=== PATIENT | male | born 1950 | race Caucasian/White ===

== ENCOUNTER → 2019-04-30 13:40 | Outpatient (BNVA) | payer MEDICARE, OTHER, SELFPAY | PROVIDERS: Family Provider Nurse Practitioner; PCP Nurse Practitioner; Visit Provider Nurse Practitioner | DX: E11.65 Type 2 diabetes mellitus with hyperglycemia (principal); Z79.4 Long term (current) use of insulin; I10 Essential (primary) hypertension; F41.9 Anxiety disorder, unspecified; E03.8 Other specified hypothyroidism; M51.36 Other intervertebral disc degeneration, lumbar region | CPT/HCPCS: 81003 ==

== ENCOUNTER 2019-05-15 11:14 | Outpatient (CLI) | payer MEDICARE, OTHER, SELFPAY ==
[2019-05-15 11:35] VITALS: BP 140/88; PULSE 81; RESP 16; TEMP 36.6; O2SAT 97
[2019-05-15] MEDS: denosumab 60 mg SDV (11:56)
[2019-05-15] MEDS: denosumab 60 mg SDV SUBCUT (11:57)
[2019-05-15 12:09] VITALS: BP 136/79; PULSE 64; RESP 16; TEMP 36.8; O2SAT 97
== END 2019-05-15 11:15 | disposition home or self-care (01) ==
LOC: RHEOACUTE 11:16
PROVIDERS: Family Provider Nurse Practitioner; PCP Nurse Practitioner; Visit Provider Nurse Practitioner
DX: M81.0 Age-related osteoporosis without current pathological fracture (principal)
CPT/HCPCS: 96372; J0897

== ENCOUNTER 2019-07-31 13:31 | Outpatient (CLI) | payer MEDICARE, OTHER, SELFPAY ==
[2019-07-31 14:44] LABS: Alanine Aminotransferase 15 U/L (0-41); Albumin Level 4.4 g/dL (3.5-5.2); Alkaline Phosphatase 76 IU/L (40-130); Anion Gap 16.6 (5-19); Aspartate Amino Transferase 18 U/L (0-40); Blood Urea Nitrogen 13 mg/dL (8-23); Calcium 9.4 mg/dL (8.5-10.5); Carbon Dioxide 24 mmol/L (22-29); Chloride 98 mmol/L (98-107); Globulin 2.9 g/dL (1.3-4.6); Glomerular Filtration Rate 95.6 mL/min (90-130); Glucose 202 mg/dL (65-115); Osmolality Calculated 280 mOsm/kg (285-295); Potassium 4.6 mmol/L (3.5-5.1); Sodium 134 mmol/L (136-145); Thyroid Stimulating Hormone 4.82 uIU/mL (0.27-4.20); Total Bilirubin 0.9 mg/dL (0.15-1.2); Total Protein 7.3 g/dL (6.6-8.7)
[2019-07-31 15:42] LABS: Creatinine Urine, Random 87 mg/dL (39-259)
[2019-07-31 16:04] LABS: Estmated Average Glucose 200; Hemoglobin A1C 8.6 % (4.0-6.0)
[2019-07-31 16:27] LABS: Microalbum Creatinine Ratio Ur 11 mg/dL (0-20); Microalbumin Random Urine 1 ug/dL (0-20)
== END 2019-07-31 13:32 | disposition home or self-care (01) ==
LOC: LAB 13:35
PROVIDERS: Family Provider Nurse Practitioner; PCP Nurse Practitioner; Visit Provider Nurse Practitioner
DX: E11.65 Type 2 diabetes mellitus with hyperglycemia (principal); Z79.4 Long term (current) use of insulin
CPT/HCPCS: 80053; 82044; 83036; 84443

== ENCOUNTER → 2019-12-25 10:38 | Outpatient (BNVA) | payer MEDICARE, SELFPAY | PROVIDERS: Family Provider Nurse Practitioner; PCP Nurse Practitioner; Visit Provider Internal Medicine | DX: E11.649 Type 2 diabetes mellitus with hypoglycemia without coma (principal); E11.65 Type 2 diabetes mellitus with hyperglycemia; E03.8 Other specified hypothyroidism; E78.2 Mixed hyperlipidemia | CPT/HCPCS: 99204 ==

== ENCOUNTER → 2020-01-23 10:57 | Outpatient (BNVA) | payer MEDICARE, SELFPAY | PROVIDERS: Family Provider Nurse Practitioner; PCP Nurse Practitioner; Visit Provider Internal Medicine | DX: E03.8 Other specified hypothyroidism (principal); E11.649 Type 2 diabetes mellitus with hypoglycemia without coma; E11.65 Type 2 diabetes mellitus with hyperglycemia; E66.9 Obesity, unspecified; E78.2 Mixed hyperlipidemia; I10 Essential (primary) hypertension | CPT/HCPCS: 99214 ==

== ENCOUNTER 2020-03-09 13:55 | Emergency (ER) | payer MEDICARE, SELFPAY ==
[2020-03-09 14:12] VITALS: BP 170/92; PULSE 81; RESP 14; TEMP 36.8; O2SAT 96; BMI 25.4
--- NOTE | 2020-03-09 14:15 | XRR_ITS ---
PROCEDURE INFORMATION: Exam: XR Left Wrist Exam date and time: 03/09/2020 2:36 PM Age: 69 years old Clinical indication: Injury or trauma; Other: Chain broke and hit wrist; Blunt trauma (contusions or hematomas); Left; Injury date: 03/09/20 TECHNIQUE: Imaging protocol: XR Left wrist. Views: 3 or more views. COMPARISON: CR Wrist 3 views, LEFT* [id number] 07/15/2017 10:53 AM FINDINGS: Bones/joints: Acute fracture of the distal ulnar diaphysis. Moderate degenerative changes of the intracarpal joints. Soft tissues: Normal. XR/XR wrist LT min 3V* [id number] IMPRESSION: Acute fracture of the distal ulnar diaphysis.
--- NOTE | 2020-03-09 14:46 | ED_ITS ---
HPI - Extremity Problem General: Chief complaint: Extremity Injury, Upper Stated complaint: L ARM INJURY Time Seen by Provider: 03/09/20 14:46 History of Present Illness: HPI Narrative: Patient is a 69-year-old male who comes to the ED with left wrist injury. Injury occurred just prior to arrival. Patient says he was helping his neighbor hooked up a trailer onto his vehicle and a chain broke and a piece of metal hit the ulnar side of left wrist. Patient says he heard and felt a snap. He says his pain is 10 out of 10. He put a old wrist brace on his left arm before coming to the ED. Associated symptoms: Deny chest pain, fever(s) or rash Review of Systems Const: Denies: fever(s), chills or fatigue Eyes: Denies: change in vision or eye discomfort ENMT: Denies: throat pain, odynophagia, nasal discharge or nasal congestion Card: Denies: chest pain, palpitations, edema, swelling of feet/ankles, dyspnea on exertion or orthopnea Resp: Denies: dyspnea, productive cough or non-productive cough GI: Denies: abdominal pain, nausea, vomiting, diarrhea, constipation or hematochezia : Denies: flank pain, difficulty urinating, dysuria or hematuria Musc: Reports: extremity pain (Left wrist) and extremity swelling (Left wrist); Denies: neck pain or back pain Skin/Breast: Denies: rash or new lesions Neuro: Denies: headache(s), numbness in extremities or weakness in extremities PFS ED PFSH: Medical History Adult onset hypothyroidism Benign essential hypertension with target blood pressure below 140/90 DDD (degenerative disc disease), lumbar GERD (gastroesophageal reflux disease) Surgical History History of back surgery 2016 History of cataract surgery Both eyes 2014 Family History Other Diabetes Social History Smoking and tobacco status: current some day smoker smokeless tobacco Smoking risk assessment/counseling performed?: No Alcohol intake: unknown Desire information about alcohol rehabilitation?: No Counseling given: No Desire information about substance/drug rehabilitation?: No Counseling given: No Adopted: No Household members: spouse Housing: Manufactured/Mobile home Marital status: Number of children: 2 Highest education level completed: 8th Grade service: No Current occupational status: retired Pets and animals: Yes History of recent travel: No Current gender identity: Male Physical Exam Const: COMMON NORMALS: no acute distress, patient oriented x3 and alert GENERAL APPEARANCE: cooperative and comfortable HENMT: COMMON NORMALS: normocephalic HEAD & SCALP: normocephalic MOUTH: Normal oral and palatal mucosa present THROAT: posterior oropharynx normal and uvula midline Neck/C-Spine: COMMON NORMALS: supple GENERAL: Yes normal visual inspection Resp: COMMON NORMALS: normal respiratory effort, No retractions, No use of accessory muscles and clear to auscultation bilaterally AUSCULTATION: clear to auscultation bilaterally Cardio: COMMON NORMALS: regular rate, regular rhythm, S1 normal heart sound present, S2 normal heart sound present, No gallops present (Cardio), No clicks present (Cardio), No murmurs present (Cardio) and Peripheral pulses 2+ throughout RATE: regular rate RHYTHM: regular rhythm HEART SOUNDS: S1 normal heart sound present and S2 normal heart sound present PERIPHERAL PULSES: Peripheral pulses 2+ throughout GI: COMMON NORMALS: Normal to inspection, nondistended, normoactive bowel sounds present, Soft to palpation, non-tender and no masses PALPATION: Yes Soft to palpation : COMMON NORMALS: Yes no CVA tenderness BLADDER/KIDNEY EXAM: Yes no CVA tenderness Back/Pelvis: COMMON NORMALS: no CVA tenderness Extremity: COMMON NORMALS: no pedal edema NARRATIVE EXTREMITY EXAM: Left wrist?swelling and tenderness on ulnar aspect of the wrist. Limited range of motion due to pain. Radial pulse 2+ and neurovascular intact. GENERAL: Yes normal exam except as noted Neuro: COMMON NORMALS: patient oriented x3 and moves all extremities SENSORIUM/ORIENTATION: Yes alert Skin: GENERAL SKIN EXAM: dry skin Course Vital Signs: Vital signs: Vital Signs Temperature 98.2 F 03/09/20 14:12 Pulse Rate 81 03/09/20 14:12 Respiratory Rate 14 03/09/20 14:12 Blood Pressure 170/92 03/09/20 14:12 Pulse Oximetry 96 03/09/20 14:12 MDM - Extremity (Nontraumatic) MDM Narrative: Medical decision making narrative: Patient is a 69-year-old male who comes to the ED with left wrist injury and pain. Left wrist x-ray shows acute fracture of distal ulnar diaphysis. Radial pulse 2+ and neurovascular intact. Patient was put in a sugar tong splint and told to limit activity with left arm. I placed an order with case management for patient be referred to Ortho. Patient was sent home with a written prescription for [place] for pain. I told patient case management will be contacting him in the next several days to set up an appointment with orthopedic doctor for reevaluation. Return to ED precautions given. Patient understood and agree with plan. Imaging Data^: Xray Ortho: Attestation: I personally reviewed and interpreted this imaging study as follows: Radiologist's impression: [employer] [address] XRay Report Signed Patient: Miguel Beauchamp Unit #: [id number] : 1950 Age/Sex: 69 / M ADM Date: 03/09/20 Loc: ER Room/Bed: Attending Dr: Ordering Provider/Ordering MD: David Land DO Date of Service: 03/09/20 Procedure(s): XR wrist LT min 3V* [id number] Accession Number(s): [id number] Report Number: [id number] PROCEDURE INFORMATION: Exam: XR Left Wrist Exam date and time: 03/09/2020 2:36 PM Age: 69 years old Clinical indication: Injury or trauma; Other: Chain broke and hit wrist; Blunt trauma (contusions or hematomas); Left; Injury date: 03/09/20 TECHNIQUE: Imaging protocol: XR Left wrist. Views: 3 or more views. COMPARISON: CR Wrist 3 views, LEFT* [id number] 07/15/2017 10:53 AM FINDINGS: Bones/joints: Acute fracture of the distal ulnar diaphysis. Moderate degenerative changes of the intracarpal joints. Soft tissues: Normal. XR/XR wrist LT min 3V* [id number] IMPRESSION: Acute fracture of the distal ulnar diaphysis. Dictated By: Maikol Swain MD Signed By: Maikol Swain MD Signed Date/Time: 03/09/201512 DD/ 11 Discharge Plan Discharge Patient Disposition: Home Clinical Impression: Left ulnar fracture Qualifiers: Encounter type: initial encounter Ulna location: distal physis (incl. Salter- Benavidez) Fracture alignment: nondisplaced Qualified Code(s): S59.002A - U nspecified physeal fracture of lower end of ulna, left arm, initial encounter for closed fracture Condition: Stable Prescriptions: No Action amlodipine [Norvasc] 5 mg tablet 5 mg PO DAILY Qty: 30 RF: 2 citalopram [Celexa] 20 mg tablet 20 mg PO DAILY Qty: 30 RF: 2 furosemide [Lasix] 20 mg tablet 20 mg PO QAM Qty: 30 RF: 2 gabapentin 300 mg capsule 300 mg PO TID Qty: 90 RF: 2 lisinopril 20 mg tablet 20 mg PO DAILY Qty: 30 RF: 2 pravastatin [Pravachol] 20 mg tablet 20 mg PO DAILY Qty: 30 RF: 2 Prolia 60 mg/mL syringe SUBCUT RF: 0 (DME) Diabetic shoes with inserts Qty: 1 RF: 0 omega 1-noz-loc-fish oil [Fish Oil] 1,000 mg (120 mg-180 mg) capsule 2 cap PO DAILY RF: 0 glucosamine-chondroitin [Osteo Bi-Flex] 250-200 mg tablet 1 tab PO ONCE RF: 0 potassium gluconate 595 mg (99 mg) tablet 595 mg PO DAILY RF: 0 magnesium 250 mg tablet 250 mg PO DAILY RF: 0 calcium carbonate [Calcium 600] 600 mg calcium (1,500 mg) tablet 600 mg PO DAILY RF: 0 cholecalciferol (vitamin D3) 50 mcg (2,000 unit) capsule 50 mcg PO DAILY RF: 0 cholecalciferol (vitamin D3) 1,250 mcg (50,000 unit) tablet 50,000 unit PO .COMPLEX RF: 0 Bydureon 2 mg/0.65 mL pen injector 2 mg SUBCUT Q7D Qty: 4 RF: 2 (DME) FreeStyle Oleg 14 Day Sensor Kit See Rx Instructions .ROUTE .MEDSUPPLY Qty: 2 RF: 3 (DME) FreeStyle Oleg 14 Day [place] Misc See Rx Instructions .ROUTE .MEDSUPPLY Qty: 1 RF: 0 levothyroxine 150 mcg tablet 150 mcg PO DAILY Qty: 30 RF: 2 Levemir FlexTouch U-100 Insuln 100 unit/mL (3 mL) insulin pen 65 unit SUBCUT BID Qty: 117 RF: 3 Discharge Orders: Discharge Order (Routine); Ordered 03/09/20 Ordered By: James Martinez Discharge Diet: Regular Discharge Activity: Limit activity as instructed Patient Instructions: Wrist Fracture in Adults (ED) Activity Restrictions/Additional Instructions: Follow-up with medical provider as directed. Case management will be contacting you in the next day or 2 to set up an appointment with orthopedic doctor. Keep splint on and dry and limit activity with left arm. Take medications as prescribed. Return to the ER or your medical provider if condition worsens. Please read and understand discharge instructions. If any questions, please ask. Coding Level of Care Code ED Gear Keeper for Beth Fwkathi Exam Comprehensive
[2020-03-09] MEDS: HYDROcodone-acetaminophen 7.5-325 mg Tablet 1 TAB PO (15:04)
--- NOTE | 2020-03-09 16:03 | DCPLANNER ---
manager of health was asked to schedule a follow up appointment for patient with ortho. manager of health called the ortho clinic, spoke with Esther, gave clinic patients information. manager of health was told that patients information will be printed and reviewed. Clinic will call patient with appointment information.
--- NOTE | 2020-03-18 09:45 | DCPLANNER ---
Patient had a follow up appointment scheduled for 03.16.20 with ortho - patient did attend appointment.
== END 2020-03-09 15:47 | disposition home or self-care (01) ==
PROVIDERS: Emergency Provider Physician Assistant
DX: S59.002A Unspecified physeal fracture of lower end of ulna, left arm, initial encounter for closed fracture (principal); W20.8XXA Other cause of strike by thrown, projected or falling object, initial encounter; Z79.4 Long term (current) use of insulin; I10 Essential (primary) hypertension; F17.220 Nicotine dependence, chewing tobacco, uncomplicated
CPT/HCPCS: 12345; 29125; 73110; 99281; 99283

== ENCOUNTER 2020-03-16 15:53 | Outpatient (CLI) | payer MEDICARE, SELFPAY | END 2020-03-16 15:54 | disposition home or self-care (01) | LOC: SPT 15:54 | PROVIDERS: Visit Provider Orthopaedic Surgery | DX: Z46.89 Encounter for fitting and adjustment of other specified devices (principal); S52.692D Other fracture of lower end of left ulna, subsequent encounter for closed fracture with routine healing; X58.XXXD Exposure to other specified factors, subsequent encounter | CPT/HCPCS: 97760; L3982 ==

== ENCOUNTER → 2020-03-24 14:15 | Outpatient (BNVA) | payer MEDICARE, SELFPAY | PROVIDERS: Visit Provider Orthopaedic Surgery | DX: S52.502P Unspecified fracture of the lower end of left radius, subsequent encounter for closed fracture with malunion (principal); S52.602 Unspecified fracture of lower end of left ulna | CPT/HCPCS: 73110 ==

== ENCOUNTER → 2020-04-14 14:12 | Outpatient (BNVA) | payer MEDICARE, SELFPAY | PROVIDERS: Visit Provider Orthopaedic Surgery | DX: S52.202A Unspecified fracture of shaft of left ulna, initial encounter for closed fracture (principal); S52.502P Unspecified fracture of the lower end of left radius, subsequent encounter for closed fracture with malunion | CPT/HCPCS: 73110 ==

== ENCOUNTER → 2020-04-30 09:15 | Outpatient (BNVA) | payer MEDICARE, SELFPAY | PROVIDERS: Visit Provider Internal Medicine | DX: E11.649 Type 2 diabetes mellitus with hypoglycemia without coma (principal); E11.65 Type 2 diabetes mellitus with hyperglycemia; E66.9 Obesity, unspecified; E78.2 Mixed hyperlipidemia | CPT/HCPCS: 99214 ==

== ENCOUNTER → 2020-05-13 13:00 | Outpatient (BNVA) | payer MEDICARE, SELFPAY | PROVIDERS: Visit Provider Orthopaedic Surgery | DX: S52.202A Unspecified fracture of shaft of left ulna, initial encounter for closed fracture (principal); S52.502P Unspecified fracture of the lower end of left radius, subsequent encounter for closed fracture with malunion | CPT/HCPCS: 73110 ==

== ENCOUNTER 2020-07-21 10:31 | Outpatient (CLI) | payer MEDICARE, SELFPAY ==
--- NOTE | 2020-07-21 10:45 | XR_ITS ---
WS: [id number] KNEE RIGHT TECHNIQUE: 3 views of the right knee CLINICAL INFORMATION: PAIN IN RIGHT KNEE COMPARISON: None. FINDINGS: Moderate tricompartmental arthritis worse in the medial compartment and patellofemoral articulation. Hypertrophic patella. Hypertrophic changes along the lateral joint line. Chondrocalcinosis. Soft tiss ue edema. Small suprapatellar effusion. XR/XR knee RT 3V* [id number] IMPRESSION: 1. Moderate tricompartmental arthritis worse in the medial joint compartment a nd patellofemoral articulation. 2. Hypertrophic patella. 3. Small suprapatellar effusion with soft tissue edema. 4. No acute fractures
== END 2020-07-21 10:32 | disposition home or self-care (01) ==
LOC: RADWPI 10:38
PROVIDERS: PCP Nurse Practitioner Family; Visit Provider Nurse Practitioner Family
DX: M25.561 Pain in right knee (principal); M25.461 Effusion, right knee; R60.0 Localized edema
CPT/HCPCS: 73562

== ENCOUNTER → 2020-11-19 09:29 | Outpatient (BNVA) | payer MEDICARE, SELFPAY | PROVIDERS: PCP Nurse Practitioner Family; Referring Provider Nurse Practitioner Family; Visit Provider Urology | DX: R97.20 Elevated prostate specific antigen [PSA] (principal); R36.1 Hematospermia; N52.9 Male erectile dysfunction, unspecified; F41.9 Anxiety disorder, unspecified | CPT/HCPCS: 81003; 84153 ==

== ENCOUNTER → 2021-03-30 13:23 | Outpatient (BNVA) | payer MEDICARE, SELFPAY | PROVIDERS: PCP Nurse Practitioner Family; Visit Provider Internal Medicine | DX: E11.65 Type 2 diabetes mellitus with hyperglycemia (principal); E11.649 Type 2 diabetes mellitus with hypoglycemia without coma; E78.2 Mixed hyperlipidemia; E66.9 Obesity, unspecified; T63.001A Toxic effect of unspecified snake venom, accidental (unintentional), initial encounter; X58.XXXA Exposure to other specified factors, initial encounter; Z79.4 Long term (current) use of insulin; Z68.30 Body mass index [BMI] 30.0-30.9, adult | CPT/HCPCS: 99214 ==

== ENCOUNTER → 2021-07-02 10:50 | Outpatient (BNVA) | payer MEDICARE, SELFPAY | PROVIDERS: PCP Nurse Practitioner Family; Visit Provider Nurse Practitioner | DX: I10 Essential (primary) hypertension (principal); E11.65 Type 2 diabetes mellitus with hyperglycemia; Z79.4 Long term (current) use of insulin; M79.18 Myalgia, other site | CPT/HCPCS: 80053; 80061; 83036 ==

== ENCOUNTER → 2021-10-07 14:03 | Outpatient (BNVA) | payer MEDICARE, SELFPAY | PROVIDERS: PCP Nurse Practitioner; Visit Provider Nurse Practitioner | DX: Z12.5 Encounter for screening for malignant neoplasm of prostate (principal); E11.65 Type 2 diabetes mellitus with hyperglycemia; Z79.4 Long term (current) use of insulin; I10 Essential (primary) hypertension; E03.8 Other specified hypothyroidism; M17.10 Unilateral primary osteoarthritis, unspecified knee; M79.18 Myalgia, other site | CPT/HCPCS: 80053; 83036; 84443; G0103 ==

== ENCOUNTER → 2021-11-30 10:47 | Outpatient (BNVA) | payer MEDICARE, SELFPAY | PROVIDERS: PCP Nurse Practitioner; Visit Provider Podiatrist Foot & Ankle Surgery | DX: E11.42 Type 2 diabetes mellitus with diabetic polyneuropathy (principal); M21.619 Bunion of unspecified foot; M20.42 Other hammer toe(s) (acquired), left foot; L84 Corns and callosities; L60.2 Onychogryphosis; Z79.4 Long term (current) use of insulin | CPT/HCPCS: 11056; 11721 ==

== ENCOUNTER → 2021-12-22 11:46 | Outpatient (BNVA) | payer MEDICARE, SELFPAY | PROVIDERS: PCP Nurse Practitioner; Visit Provider Podiatrist Foot & Ankle Surgery | DX: E11.42 Type 2 diabetes mellitus with diabetic polyneuropathy (principal); M21.619 Bunion of unspecified foot; L84 Corns and callosities; M20.41 Other hammer toe(s) (acquired), right foot; Z79.4 Long term (current) use of insulin; Z79.84 Long term (current) use of oral hypoglycemic drugs; M20.42 Other hammer toe(s) (acquired), left foot | CPT/HCPCS: 28010 ==

== ENCOUNTER → 2021-12-28 08:04 | Outpatient (BNVA) | payer MEDICARE, SELFPAY | PROVIDERS: PCP Nurse Practitioner; Visit Provider Nurse Practitioner | DX: E03.8 Other specified hypothyroidism (principal); E11.65 Type 2 diabetes mellitus with hyperglycemia; Z79.4 Long term (current) use of insulin; Z12.5 Encounter for screening for malignant neoplasm of prostate | CPT/HCPCS: 80053; 83036; 84443; G0103 ==

== ENCOUNTER → 2022-03-29 10:28 | Outpatient (BNVA) | payer MEDICARE, SELFPAY | PROVIDERS: PCP Nurse Practitioner; Visit Provider Nurse Practitioner | DX: E11.65 Type 2 diabetes mellitus with hyperglycemia (principal); Z79.4 Long term (current) use of insulin; I10 Essential (primary) hypertension; E03.8 Other specified hypothyroidism | CPT/HCPCS: 80053; 83036; 84443 ==

== ENCOUNTER → 2022-06-21 10:37 | Outpatient (BNVA) | payer MEDICARE, SELFPAY | PROVIDERS: PCP Nurse Practitioner; Visit Provider Nurse Practitioner | DX: E11.65 Type 2 diabetes mellitus with hyperglycemia (principal); I10 Essential (primary) hypertension; Z79.4 Long term (current) use of insulin | CPT/HCPCS: 80053; 83036; 84443 ==

== ENCOUNTER → 2022-06-23 13:32 | Outpatient (BNVA) | payer MEDICARE, SELFPAY | PROVIDERS: PCP Nurse Practitioner; Visit Provider Nurse Practitioner | DX: E11.65 Type 2 diabetes mellitus with hyperglycemia (principal); Z79.4 Long term (current) use of insulin | CPT/HCPCS: 81000; 82043 ==

== ENCOUNTER → 2022-07-28 08:38 | Outpatient (BNVA) | payer MEDICARE, SELFPAY | PROVIDERS: PCP Nurse Practitioner; Visit Provider Nurse Practitioner | DX: R11.2 Nausea with vomiting, unspecified (principal); W57.XXXA Bitten or stung by nonvenomous insect and other nonvenomous arthropods, initial encounter | CPT/HCPCS: 80053; 81000; 85025 ==

== ENCOUNTER → 2022-08-02 11:51 | Outpatient (BNVA) | payer MEDICARE, SELFPAY | PROVIDERS: PCP Nurse Practitioner; Visit Provider Nurse Practitioner | DX: R11.2 Nausea with vomiting, unspecified (principal); W57.XXXA Bitten or stung by nonvenomous insect and other nonvenomous arthropods, initial encounter | CPT/HCPCS: 85025; 86618; 86666; 86757 ==

== ENCOUNTER → 2022-09-29 10:33 | Outpatient (BNVA) | payer MEDICARE, SELFPAY | PROVIDERS: PCP Nurse Practitioner; Visit Provider Nurse Practitioner | DX: I10 Essential (primary) hypertension (principal); E11.65 Type 2 diabetes mellitus with hyperglycemia; Z79.4 Long term (current) use of insulin | CPT/HCPCS: 80053; 80061; 83036; 84443 ==

== ENCOUNTER → 2022-10-04 14:49 | Outpatient (BNVA) | payer MEDICARE, SELFPAY | PROVIDERS: PCP Nurse Practitioner; Visit Provider Nurse Practitioner | DX: E03.8 Other specified hypothyroidism (principal); E11.65 Type 2 diabetes mellitus with hyperglycemia; Z79.4 Long term (current) use of insulin; I10 Essential (primary) hypertension; H65.90 Unspecified nonsuppurative otitis media, unspecified ear; M17.10 Unilateral primary osteoarthritis, unspecified knee | CPT/HCPCS: 81000 ==

== ENCOUNTER → 2022-12-27 10:54 | Outpatient (BNVA) | payer MEDICARE, SELFPAY | PROVIDERS: PCP Nurse Practitioner; Visit Provider Nurse Practitioner | DX: E11.65 Type 2 diabetes mellitus with hyperglycemia (principal); Z79.4 Long term (current) use of insulin; I10 Essential (primary) hypertension | CPT/HCPCS: 80053; 80061; 83036; 84443 ==

== ENCOUNTER → 2022-12-29 13:35 | Outpatient (BNVA) | payer MEDICARE, SELFPAY | PROVIDERS: PCP Nurse Practitioner; Visit Provider Nurse Practitioner | DX: E11.65 Type 2 diabetes mellitus with hyperglycemia (principal); Z79.4 Long term (current) use of insulin | CPT/HCPCS: 81000 ==

== ENCOUNTER → 2023-01-24 14:06 | Outpatient (BNVA) | payer MEDICARE, SELFPAY | PROVIDERS: PCP Nurse Practitioner; Visit Provider Podiatrist Foot & Ankle Surgery | DX: E11.42 Type 2 diabetes mellitus with diabetic polyneuropathy (principal); M21.619 Bunion of unspecified foot; M20.42 Other hammer toe(s) (acquired), left foot; M20.41 Other hammer toe(s) (acquired), right foot; L60.3 Nail dystrophy; L97.512 Non-pressure chronic ulcer of other part of right foot with fat layer exposed; E11.621 Type 2 diabetes mellitus with foot ulcer; Z79.4 Long term (current) use of insulin | CPT/HCPCS: 11042; 11721 ==

== ENCOUNTER → 2023-02-08 15:19 | Outpatient (BNVA) | payer MEDICARE, SELFPAY | PROVIDERS: PCP Nurse Practitioner; Visit Provider Podiatrist Foot & Ankle Surgery | DX: L97.514 Non-pressure chronic ulcer of other part of right foot with necrosis of bone (principal); L97.512 Non-pressure chronic ulcer of other part of right foot with fat layer exposed; E11.621 Type 2 diabetes mellitus with foot ulcer; E11.42 Type 2 diabetes mellitus with diabetic polyneuropathy; M20.41 Other hammer toe(s) (acquired), right foot; Z79.4 Long term (current) use of insulin | CPT/HCPCS: 11044; 73630; 87070; 87075; 87077; 87186; 87205 ==

== ENCOUNTER → 2023-02-15 08:30 | Outpatient (BNVA) | payer MEDICARE, SELFPAY | PROVIDERS: PCP Nurse Practitioner; Visit Provider Podiatrist Foot & Ankle Surgery | DX: E11.42 Type 2 diabetes mellitus with diabetic polyneuropathy (principal); M20.41 Other hammer toe(s) (acquired), right foot; L97.512 Non-pressure chronic ulcer of other part of right foot with fat layer exposed; L97.514 Non-pressure chronic ulcer of other part of right foot with necrosis of bone; E11.621 Type 2 diabetes mellitus with foot ulcer; Z79.4 Long term (current) use of insulin | CPT/HCPCS: 99213 ==

== ENCOUNTER → 2023-02-22 11:37 | Outpatient (BNVA) | payer MEDICARE, SELFPAY | PROVIDERS: PCP Nurse Practitioner; Visit Provider Podiatrist Foot & Ankle Surgery | DX: M20.41 Other hammer toe(s) (acquired), right foot (principal); L97.514 Non-pressure chronic ulcer of other part of right foot with necrosis of bone | CPT/HCPCS: 99213 ==

== ENCOUNTER → 2023-03-02 15:04 | Outpatient (BNVA) | payer MEDICARE, SELFPAY | PROVIDERS: PCP Nurse Practitioner; Visit Provider Podiatrist Foot & Ankle Surgery | DX: M20.41 Other hammer toe(s) (acquired), right foot (principal); L97.514 Non-pressure chronic ulcer of other part of right foot with necrosis of bone; E11.40 Type 2 diabetes mellitus with diabetic neuropathy, unspecified; E11.65 Type 2 diabetes mellitus with hyperglycemia; Z79.4 Long term (current) use of insulin; E11.621 Type 2 diabetes mellitus with foot ulcer | CPT/HCPCS: 99213 ==

== ENCOUNTER → 2023-03-28 10:19 | Outpatient (BNVA) | payer MEDICARE, SELFPAY | PROVIDERS: PCP Nurse Practitioner; Visit Provider Nurse Practitioner | DX: E11.65 Type 2 diabetes mellitus with hyperglycemia (principal); Z79.4 Long term (current) use of insulin; E03.8 Other specified hypothyroidism; Z12.5 Encounter for screening for malignant neoplasm of prostate | CPT/HCPCS: 80053; 83036; 84443; G0103 ==

== ENCOUNTER → 2023-03-30 13:19 | Outpatient (BNVA) | payer MEDICARE, SELFPAY | PROVIDERS: PCP Nurse Practitioner; Visit Provider Nurse Practitioner | DX: E11.65 Type 2 diabetes mellitus with hyperglycemia (principal); Z79.4 Long term (current) use of insulin | CPT/HCPCS: 81000 ==

== ENCOUNTER → 2023-06-05 10:45 | Outpatient (BNVA) | payer MEDICARE, SELFPAY | PROVIDERS: PCP Nurse Practitioner; Visit Provider Podiatrist Foot & Ankle Surgery | DX: L97.513 Non-pressure chronic ulcer of other part of right foot with necrosis of muscle (principal); E11.621 Type 2 diabetes mellitus with foot ulcer; L97.514 Non-pressure chronic ulcer of other part of right foot with necrosis of bone; M20.41 Other hammer toe(s) (acquired), right foot; E11.42 Type 2 diabetes mellitus with diabetic polyneuropathy; E11.65 Type 2 diabetes mellitus with hyperglycemia; Z79.4 Long term (current) use of insulin; Z46.89 Encounter for fitting and adjustment of other specified devices | CPT/HCPCS: 11043; 73630; 87070; 87075; 87077; 87186; 87205; 97760; L4361 ==

== ENCOUNTER 2023-06-05 11:42 | Outpatient (CLI) | payer MEDICARE, SELFPAY | END 2023-06-05 11:43 | disposition home or self-care (01) | LOC: SPT 11:43 | PROVIDERS: PCP Nurse Practitioner; Visit Provider Podiatrist Foot & Ankle Surgery | DX: Z46.89 Encounter for fitting and adjustment of other specified devices (principal); L97.513 Non-pressure chronic ulcer of other part of right foot with necrosis of muscle | CPT/HCPCS: 11043; 97760; L4361 ==

== ENCOUNTER → 2023-06-14 13:06 | Outpatient (BNVA) | payer MEDICARE, SELFPAY | PROVIDERS: PCP Nurse Practitioner; Visit Provider Thoracic Surgery (Cardiothoracic Vascular Surgery) | DX: E11.52 Type 2 diabetes mellitus with diabetic peripheral angiopathy with gangrene (principal); E11.621 Type 2 diabetes mellitus with foot ulcer; L97.511 Non-pressure chronic ulcer of other part of right foot limited to breakdown of skin | CPT/HCPCS: 97597; 99213 ==

== ENCOUNTER → 2023-06-21 13:35 | Outpatient (BNVA) | payer MEDICARE, SELFPAY | PROVIDERS: PCP Nurse Practitioner; Visit Provider Thoracic Surgery (Cardiothoracic Vascular Surgery) | DX: E11.52 Type 2 diabetes mellitus with diabetic peripheral angiopathy with gangrene (principal); E11.621 Type 2 diabetes mellitus with foot ulcer; L97.511 Non-pressure chronic ulcer of other part of right foot limited to breakdown of skin | CPT/HCPCS: 97597 ==

== ENCOUNTER → 2023-06-27 10:22 | Outpatient (BNVA) | payer MEDICARE, SELFPAY | PROVIDERS: PCP Nurse Practitioner; Visit Provider Nurse Practitioner | DX: I10 Essential (primary) hypertension (principal); E11.65 Type 2 diabetes mellitus with hyperglycemia; R97.20 Elevated prostate specific antigen [PSA]; Z79.4 Long term (current) use of insulin | CPT/HCPCS: 80053; 83036; 84153; 84443; 85025 ==

== ENCOUNTER → 2023-06-28 14:08 | Outpatient (BNVA) | payer MEDICARE, SELFPAY | PROVIDERS: PCP Nurse Practitioner; Visit Provider Thoracic Surgery (Cardiothoracic Vascular Surgery) | DX: E11.52 Type 2 diabetes mellitus with diabetic peripheral angiopathy with gangrene (principal); E11.621 Type 2 diabetes mellitus with foot ulcer; L97.511 Non-pressure chronic ulcer of other part of right foot limited to breakdown of skin | CPT/HCPCS: 97597 ==

== ENCOUNTER → 2023-06-29 13:31 | Outpatient (BNVA) | payer MEDICARE, SELFPAY | PROVIDERS: PCP Nurse Practitioner; Visit Provider Nurse Practitioner | DX: E11.65 Type 2 diabetes mellitus with hyperglycemia (principal); Z79.4 Long term (current) use of insulin | CPT/HCPCS: 81000 ==

== ENCOUNTER → 2023-07-05 14:16 | Outpatient (BNVA) | payer MEDICARE, SELFPAY | PROVIDERS: PCP Nurse Practitioner; Visit Provider Thoracic Surgery (Cardiothoracic Vascular Surgery) | DX: E11.52 Type 2 diabetes mellitus with diabetic peripheral angiopathy with gangrene (principal); E11.621 Type 2 diabetes mellitus with foot ulcer; L97.511 Non-pressure chronic ulcer of other part of right foot limited to breakdown of skin | CPT/HCPCS: 97597 ==

== ENCOUNTER 2023-08-09 07:49 | Emergency (ER) | payer MEDICARE, OTHER, SELFPAY ==
[2023-08-09 07:56] VITALS: BP 153/78; PULSE 72; TEMP 36.6; O2SAT 96
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
[2023-08-09] MEDS: ondansetron 2 mg/ML SDV 2 mL 4 MG IVP (08:45)
[2023-08-09 08:46] VITALS: RESP 18; O2SAT 97
[2023-08-09] MEDS: morphine 4 mg/mL SDV 1 mL IVP ×2 (08:46→10:54)
[2023-08-09] MEDS: orphenadrine 30 mg/mL Inj 2 mL 60 MG IM (08:48)
[2023-08-09 10:48] VITALS: BP 156/76; PULSE 82; O2SAT 91
[2023-08-09 10:54] VITALS: RESP 17; O2SAT 93
[2023-08-09 12:21] VITALS: BP 138/86; PULSE 81; O2SAT 94
== END 2023-08-09 12:23 | disposition home or self-care (01) ==
PROVIDERS: Emergency Provider Family Medicine; PCP Nurse Practitioner
DX: S39.012A Strain of muscle, fascia and tendon of lower back, initial encounter (principal); Z79.4 Long term (current) use of insulin; E11.9 Type 2 diabetes mellitus without complications; I69.951 Hemiplegia and hemiparesis following unspecified cerebrovascular disease affecting right dominant side; I10 Essential (primary) hypertension; X50.1XXA Overexertion from prolonged static or awkward postures, initial encounter; Y92.129 Unspecified place in nursing home as the place of occurrence of the external cause
CPT/HCPCS: 72131; 96372; 96374; 96375; 96376; 99285; J2270; J2360; J2405

== ENCOUNTER → 2023-09-29 08:25 | Outpatient (BNVA) | payer MEDICARE, OTHER, SELFPAY | PROVIDERS: PCP Nurse Practitioner; Visit Provider Nurse Practitioner | DX: E55.9 Vitamin D deficiency, unspecified (principal); E11.65 Type 2 diabetes mellitus with hyperglycemia; Z79.4 Long term (current) use of insulin; E03.8 Other specified hypothyroidism; I10 Essential (primary) hypertension | CPT/HCPCS: 80053; 80061; 82306; 83036; 84443; 85025 ==

== ENCOUNTER 2023-10-01 13:10 | Emergency (ER) | payer MEDICARE, OTHER, SELFPAY ==
[2023-10-01 13:12] VITALS: BP 159/89; PULSE 80; RESP 18; TEMP 36.7; O2SAT 97; BMI 26.6
--- NOTE | 2023-10-01 13:16 | XRR_ITS ---
PROCEDURE INFORMATION: Exam: XR Right Hip Exam date and time: 10/01/2023 1:36 PM Age: 72 years old Clinical indication: Injury or trauma; Fall; Blunt trauma (contusions or hematomas); Right; Hip; Prior surgery; Surgery date: 6+ months; Additional info: Fall right hip pain TECHNIQUE: Imaging protocol: Radiologic exam of the right hip. Views: 1 view hip with pelvis when performed. COMPARISON: CT pelvis wo con [id number] 07/15/2017 11:29 AM FINDINGS: Bones/joints: Metallic hardware transfix healing intertrochanteric fractures of the right hip. Bony alignment is normal. No acute fracture noted. Soft tissues: Unremarkable. XR/XR hip RT 2-3V wo/w pel* [id number] IMPRESSION: Stable healing fractures of the right femur
--- NOTE | 2023-10-01 13:25 | W.ED.EXTPRO ---
HPI - Extremity Problem General: Chief complaint: Extremity Injury, Lower Stated complaint: RIGHT HIP PAIN S/P FALL Time Seen by Provider: 10/01/23 13:12 History of Present Illness: Patient presents to the ER with complaints of falling after tripping over his dog and landing on his right hip and now having right hip pain. Patient denies any blood thinners. Or hitting his head. EMS gave him 4 mg Zofran and 50 mcg of fentanyl on route. Patient does appear to have shortening and rotation. Patient has a mateo in his femur where he broke it earlier this year. He was then in [place]. This pain is controlled at the present time. Patient has no other complaints. Review of Systems General: Reports: 10 or more systems reviewed and unremarkable except in HPI and below PFSH ED PFSH: Medical History Urinary hesitancy Dietary noncompliance Osteoarthritis, knee Diabetes mellitus with hyperglycemia, with long-term current use of insulin 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 Erectile dysfunction Hematospermia Elevated PSA GERD (gastroesophageal reflux disease) DDD (degenerative disc disease), lumbar Adult onset hypothyroidism Benign essential hypertension with target blood pressure below 140/90 Surgical History S/P ORIF (open reduction internal fixation) fracture July 05 Right femur mateo, plate, screws at [place] History of back surgery 2016 History of cataract surgery Both eyes 2014 Family History Other Diabetes Hypertension Social History Smoking and tobacco/nicotine status: never used tobacco/nicotine Alcohol intake: unknown Substance/Drug Use: never Adopted: No Caregiver/support person: No Lives independently: Yes Household members: spouse Housing: House Marital status: Number of children: 2 service: No Current occupational status: retired Pets and animals: Yes Pets & animals: farm animals Do you think of yourself as: Straight/Heterosexual Current gender identity: Male Physical Exam Const: COMMON NORMALS: no acute distress, average body habitus, patient oriented x3, no limitations, healthy appearing, alert and well nourished HENMT: COMMON NORMALS: normocephalic, atraumatic, hearing grossly normal bilaterally, external ears normal, Normal external nose present and moist oral mucous membranes HEAD & SCALP: normocephalic and atraumatic NOSE: Normal external nose present EXTERNAL EAR: Yes external ears normal Neck/C-Spine: COMMON NORMALS: no JVD Chest: COMMONS NORMALS: normal inspection of the chest and normal palpation of entire chest wall Resp: COMMON NORMALS: normal respiratory effort, No retractions, No use of accessory muscles and clear to auscultation bilaterally AUSCULTATION: clear to auscultation bilaterally Cardio: COMMON NORMALS: no JVD, regular rate, regular rhythm, S1 normal heart sound present, S2 normal heart sound present, No gallops present (Cardio), No clicks present (Cardio) and No murmurs present (Cardio) RATE: regular rate RHYTHM: regular rhythm HEART SOUNDS: S1 normal heart sound present and S2 normal heart sound present GI: COMMON NORMALS: Normal to inspection, nondistended, normoactive bowel sounds present, Soft to palpation, non-tender, No hepatosplenomegaly present and no masses PALPATION: Yes Soft to palpation and Yes No hepatosplenomegaly present Extremity: NARRATIVE EXTREMITY EXAM: Tenderness with palpation over right hip region. Increased pain with movement. Neuro: COMMON NORMALS: patient oriented x3 SENSORIUM/ORIENTATION: Yes alert Course Vital Signs: Vital signs: Vital Signs Temperature 98.0 F 10/01/23 13:12 Pulse Rate 80 10/01/23 13:12 Respiratory Rate 18 10/01/23 13:12 Blood Pressure 159/89 10/01/23 13:12 Pulse Oximetry 97 10/01/23 13:12 Oxygen Delivery Me thod Room Air 10/01/23 13:12 MDM - Extremity (Nontraumatic) Medical Decision Making X-ray was obtained of patient's right hip and pelvis and right femur, no acute changes noted stable healing fractures noted in both. These results was discussed with the patient and his . Patient be discharged home. Differential Diagnosis Unlikely herpes zoster, gout, cellulitis, superficial thrombophlebitis, deep venous thrombosis of upper extremity, lower extremity edema or deep vein thrombosis of lower extremity Medical Records I reviewed the patient's medical records. Lab Data Radiology Impressions Hip/Pelvis X-Ray 10/01/23 13:16 IMPRESSION: Stable healing fractures of the right femur Femur X-Ray 10/01/23 13:43 IMPRESSION: Stable healing intertrochanteric fractures of the right hip All radiology interpretation(s) finalized by discharge Discharge Plan Discharge Patient Disposition: Home Clinical Impression: Fall, Contusion of hip Condition: Stable Prescriptions: No Action Prolia 60 mg/mL syringe SUBCUT potassium gluconate 595 mg (99 mg) tablet 595 mg PO DAILY magnesium 250 mg tablet 250 mg PO DAILY vitamin E (dl, acetate) 450 mg (1,000 unit) capsule 450 mg PO DAILY sildenafil 100 mg tablet 100 mg PO DAILY PRN (Reason: sexual activity) Qty: 20 12RF Rx Instructions: 1 hour before intercourse on empty stomach. NO NITROGLYCERIN! glucosamine-chondroitin [Osteo Bi-Flex] 250-200 mg tablet 1 tab PO ONCE Rx Instructions: give after food/meal insulin lispro [Humalog KwikPen Insulin] 100 unit/mL insulin pen See Rx Instructions SUBCUT TID Qty: 15 2RF Hold Instructions: Blood sugar improved Rx Instructions: 110-129=3U 130-150=6U 151-200=9U 201-250=12U 251-300=15U 301-350=18U 351-400=21U >400=24U SUBCUT three times daily; mupirocin 2 % ointment 1 applic topical BID Qty: 15 0RF ([facility]) Diabetic Tennis Shoes with 3 Pairs of Inserts See Rx Instructions .Route .MEDSUPPLY Qty: 1 0RF Rx Instructions: As directed by DRAKE[employer]O ([facility]) pen needle, diabetic [BD Ultra-Fine Micro Pen Needle] 32 gauge x 1/4 needle See Rx Instructions .ROUTE .MEDSUPPLY Qty: 360 3RF Rx Instructions: As directed (DME) Wheelchair See Rx Instructions .Route .MEDSUPPLY Qty: 1 0RF Rx Instructions: As directed ([facility]) FreeStyle Oleg 14 Day [place] Misc See Rx Instructions .ROUTE .MEDSUPPLY Qty: 1 0RF Rx Instructions: As directed ([facility]) FreeStyle Oleg 14 Day Sensor Kit See Rx Instructions .ROUTE .MEDSUPPLY Qty: 2 3RF Rx Instructions: As directed ([facility]) Custom molded accommodative diabetic shoes See Rx Instructions .Route .MEDSUPPLY Qty: 1 0RF Rx Instructions: As directed cholecalciferol (vitamin D3) 1,250 mcg (50,000 unit) tablet 50,000 unit PO .COMPLEX Qty: 4 5RF Rx Instructions: 50,000 units PO once every 7 days; clonidine HCl 0.3 mg tablet 0.3 mg PO Q8H Qty: 90 5RF duloxetine [Cymbalta] 20 mg capsule,delayed release(DR/EC) 20 mg PO BID Qty: 60 5RF Jardiance 25 mg tablet 25 mg PO QAM Qty: 30 5RF fluticasone propionate [Flonase Allergy Relief] 50 mcg/actuation spray,suspension 1 spray intranasal DAILY Qty: 16 5RF Rx Instructions: administer into each nostril insulin detemir U-100 100 unit/mL (3 mL) insulin pen 70 unit SUBCUT BID Qty: 117 5RF levothyroxine 200 mcg tablet 200 mcg PO DAILY Qty: 30 5RF pravastatin 20 mg tablet 20 mg PO DAILY Qty: 30 5RF Rx Instructions: at bedtime Rybelsus 14 mg tablet 14 mg PO DAILY Qty: 30 5RF tramadol 50 mg tablet 50 mg PO Q8H Qty: 90 2RF valsartan [Diovan] 320 mg tablet 320 mg PO DAILY Qty: 30 5RF tamsulosin [Flomax] 0.4 mg capsule 0.4 mg PO DAILY Qty: 30 5RF (DME) JACOB lange See Rx Instructions .Route .MEDSUPPLY Qty: 1 0RF Rx Instructions: As directed tizanidine 4 mg tablet 2 mg PO Q6H PRN (Reason: muscle spasticity) Qty: 20 0RF Rx Instructions: do not exceed 3 doses per 24 hrs hydrocodone-acetaminophen 5-325 mg tablet 1 tab PO Q6H PRN (Reason: pain) Qty: 10 0RF prednisone 20 mg tablet 20 mg PO TID Qty: 15 0RF Rx Instructions: 1 p.o. 3 times daily x3 days, 1 p.o. twice daily x2 days, 1 p.o. daily x2 days Discharge Orders: Discharge ED (Routine); Ordered 10/01/23 Ordered By: Vinicio Huntley Referrals: Corey Martin FNP-C [Primary Care Provider] - 1 week Patient Instructions: Hip Contusion (ED) Activity Restrictions/Additional Instructions: Your x-rays obtained of your right hip pelvis and femur did not show any new fractures. Coding Level of Care Code ED Gear Setter for Beth Roland
--- NOTE | 2023-10-01 13:43 | XRR_ITS ---
PROCEDURE INFORMATION: Exam: XR Right Femur Exam date and time: 10/01/2023 1:44 PM Age: 72 years old Clinical indication: Injury or trauma; Fall; Blunt trauma; Right; Prior surgery; Surgery date: 6+ months; Surgery type: RT hip; Additional info: Fall pain TECHNIQUE: Imaging protocol: Radiologic exam of the right femur. Views: 2 views. COMPARISON: NM bone scan whole body* [id number] 01/28/2019 7:49 AM FINDINGS: Bones/joints: Metallic hardware transfix healing comminuted fractures of the intertrochanteric portion of the right femur. Bony alignment is normal. No acute abnormality noted. Soft tissues: Unremarkable. XR/XR femur RT min 2V* [id number] IMPRESSION: Stable healing intertrochanteric fractures of the right hip
== END 2023-10-01 15:10 | disposition home or self-care (01) ==
PROVIDERS: Emergency Provider Emergency Medicine; PCP Nurse Practitioner
DX: S70.01XA Contusion of right hip, initial encounter (principal); Z79.4 Long term (current) use of insulin; E11.9 Type 2 diabetes mellitus without complications; I69.951 Hemiplegia and hemiparesis following unspecified cerebrovascular disease affecting right dominant side; I10 Essential (primary) hypertension; W01.0XXA Fall on same level from slipping, tripping and stumbling without subsequent striking against object, initial encounter
CPT/HCPCS: 73502; 73552; 99283

== ENCOUNTER → 2024-01-08 08:55 | Outpatient (BNVA) | payer MEDICARE, OTHER, SELFPAY | PROVIDERS: PCP Nurse Practitioner; Visit Provider Nurse Practitioner | DX: E11.9 Type 2 diabetes mellitus without complications (principal) | CPT/HCPCS: 80053; 80061; 83036; 84443; 85025 ==

== ENCOUNTER 2024-03-27 09:29 | Outpatient (CLI) | payer MEDICARE, OTHER, SELFPAY ==
[2024-03-27 10:33] LABS: Bilirubin Urine Negative (Negative); Blood Urine Negative (Negative); Glucose Urine UA 3+ (Normal); Ketones Urine Negative (Negative); Leukocyte Esterase Urine Negative (Negative); Nitrate Urine Negative (Negative); Protein Urine Negative (Negative); Specific Gravity, Urine 1.026 (1.005-1.030); Urine Appearance Clear (CLEAR); Urine Color Yellow (Yellow); Urobilinogen Urine 0.2 mg/dL (Negative)
[2024-03-27 10:38] LABS: Add Urine Microscopic? YES; Bacteria Urine None Seen /hpf; RBC Urine 0-2 /hpf (0-2); Squamous Epithelial Cell Urine 0-5 /hpf (0-5); WBC Urine 0-5 /hpf (0-5)
[2024-03-27 10:44] LABS: Estmated Average Glucose 192; Hemoglobin A1C 8.3 % (4.0-6.0)
[2024-03-27 10:52] LABS: Alanine Aminotransferase 20 U/L (0-41); Albumin Level 4.1 g/dL (3.5-5.2); Alkaline Phosphatase 147 U/L (40-130); Anion Gap 17.2 (5-19); Aspartate Amino Transferase 21 U/L (0-40); Blood Urea Nitrogen 21 mg/dL (8-23); Calcium 9.3 mg/dL (8.5-10.5); Carbon Dioxide 20 mmol/L (22-29); Chloride 101 mmol/L (98-107); Globulin 3.2 g/dL (1.3-4.6); Glucose 197 mg/dL (65-115); Osmolality Calculated 286 mOsm/kg (285-295); Potassium 4.2 mmol/L (3.5-5.1); Sodium 134 mmol/L (136-145); Total Bilirubin 0.7 mg/dL (0.15-1.2); Total Protein 7.3 g/dL (6.6-8.7)
== END 2024-03-27 09:30 | disposition home or self-care (01) ==
LOC: LAB 09:30
PROVIDERS: PCP Nurse Practitioner; Visit Provider Nurse Practitioner
DX: E11.9 Type 2 diabetes mellitus without complications (principal); E11.65 Type 2 diabetes mellitus with hyperglycemia; Z79.4 Long term (current) use of insulin
CPT/HCPCS: 36415; 80053; 81001; 83036

== ENCOUNTER 2024-04-03 16:22 | Outpatient (CLI) | payer MEDICARE, OTHER, SELFPAY ==
--- NOTE | 2024-04-03 16:29 | CT_ITS ---
WS: [id number] CT chest w con* [id number] HISTORY: NEOPLASM OF UNCERTAIN BEHAVIOR OF SITES OF THE ORAL CAVITY TECHNIQUE: Axial imaging performed through the thorax. Coronal and sagittal reformats are submitted. [facility] use at least one of these dose optimization techniques: automated exposure control; mA and/or kV adjustment per patient size (includes targeted exams where dose is mat ched to clinical indication); or iterative reconstruction. CONTRAST: Omnipaque 350; 100 mL IV. DLP: 518.67 mGy.cm COMPARISON: None available. Lungs and central airway: Poor inspiratory effort. Lung volumes are decreased resulting in crowding. No pulmonary mass or nodule. No pneumonia. Benign granuloma RIGHT lower lobe. Pleura: Normal. No pleural effusion. Heart and pericardium: Heart is slightly enlarged. No pericardial effusion. Mediastinum and deloris: Several indeterminate subcarinal lymph nodes. The largest lymph node is 2.1 cm. No hilar adenopathy. Small AP window lymph nodes. No axillary adenopathy. No supraclavicular lymph n ode. Vessels: Mild atherosclerosis aorta. No aneurysm. Normal size pulmonary artery. Chest wall and lower neck: No soft tissue masses. Upper abdomen: Cholelithiasis without acute cholecystitis. The entire gallbladder is not included. No adrenal mass. The visualized liver is negative. Pancreas is atrophied. Pancreatic head is not includ ed completely. Splenic granulomata. Osseous structures: Advanced thoracic spondylosis. No destructive bone lesions. Prior rotator cuff re pair RIGHT shoulder. CT/CT chest w con* [id number] IMPRESSION: 1. No pulmonary mass, nodule or pneumonia. 2. Indeterminate subcarinal lymph nodes. The largest lymph node measures 2.1 c m. Smaller AP window lymph nodes. Recommend follow-up chest CT in 3 months vers us PET/CT imaging. 3. Cholelithiasis without acute cholecystitis. 4. Mild atherosclerosis thoracic aorta.
[2024-04-03] MEDS: iohexol 350 mg/mL 500 mL Btl (per mL) IV (17:17)
== END 2024-04-03 16:23 | disposition home or self-care (01) ==
LOC: RAD 16:23
PROVIDERS: PCP Nurse Practitioner; Visit Provider Specialist
DX: D37.09 Neoplasm of uncertain behavior of other specified sites of the oral cavity (principal); J84.10 Pulmonary fibrosis, unspecified; K80.20 Calculus of gallbladder without cholecystitis without obstruction
CPT/HCPCS: 71260

== ENCOUNTER 2024-04-26 09:28 | Outpatient (CLI) | payer MEDICARE, OTHER, SELFPAY ==
--- NOTE | 2024-04-26 09:31 | PETR_ITS ---
PROCEDURE INFORMATION: Exam: PET/CT Skull Base to Mid-thigh Exam date and time: 04/26/2024 10:43 AM Age: 73 years old Clinical indication: Condition or disease; Primary cancer: Malignant neoplasm of overlapping sites of tonsils; Initial oncological staging LABS AND CLINICAL REPORTS: Glucose: 106 mg/dl Treatment strategy for malignancy (PET staging): Initial Staging (PI) TECHNIQUE: Imaging protocol: Following at least four-hour fasting and following the injection of radiopharmaceutical, low dose CT images were obtained. Then, PET images were obtained. Attenuation corrected images were constructed using the CT scan. Fused images of PET and CT were reviewed. The standardized uptake values (SUV) reported below are maximum values within a region of interest, expressed in gm/ml. Exam includes orbital meatal line to mid-thigh. SUV normalization method: BodyWeight Radiopharmaceutical: 11.74 mCi F-18 FDG (Fluorodeoxyglucose), IV. Time of imaging post radiopharmaceutical administration: 56 minutes Injection site: right hand COMPARISON: 1. CT chest w con* [id number] 04/03/2024 4:[address] lumbar spine wo con* [id number] 08/09/2023 9:20 AM 3. NM bone scan whole body* [id number] 01/28/2019 7:49 AM FINDINGS: Brain: Visualized brain has normal physiologic uptake. Pharynx: FDG avid left pharyngeal mass measures approximately 2.9 x 2.8 cm on axial image 636 and shows SUV max 19.5. Larynx: No abnormal uptake. Lungs, pleura and trachea: No abnormal uptake. Trace right pleural effusion. Heart: Normal physiologic uptake. Coronary arteries: Mild coronary artery calcification. Mediastinal space: No abnormal uptake. Liver: No abnormal uptake. Gallbladder and biliary ducts: No abnormal uptake. Cholelithiasis. Pancreas: No abnormal uptake. Diffuse atrophy without ductal dilatation. Spleen: No abnormal uptake. Calcified granulomata. Adrenal glands: No abnormal uptake. Kidneys and ureters: Normal physiologic uptake. Fluid density photopenic left renal cyst. Stomach and bowel: No abnormal uptake. Reproductive: Mild prostatomegaly. No abnormal uptake. Vasculature: No abnormal uptake. Mild systemic atherosclerotic calcification without aortic aneurysm. Lymph nodes: Enlarged left level 2 node measures approximately 1.9 x 1.7 cm on axial image 626 and shows SUV max 12.6. Focal FDG uptake at left lower abdominopelvic mesentery showing SUV max 10.7 on axial image 231 adjacent to nonenlarged left external iliac node. Calcified mediastinal and bilateral hilar nodes in keeping with sequela of old granulomatous disease. Skeleton: Healing subacute fracture deformities of the anterolateral right 3rd through 5th ribs with associated FDG uptake. Additional non FDG avid nonacute bilateral rib fracture deformities. Degenerative changes along the spine. Augmented L1 vertebral body. L5-S1 posterior instrumented fusion. Nonacute proximal right femur fracture deformity with partially visualized intramedullary nail and screw fixation with associated surrounding FDG uptake and thickening in the region of the iliopsoas bursa with central photopenia and peripheral uptake. Right humeral head suture anchors. Periarticular uptake at the [id number]-right glenohumeral and left hip joints likely inflammatory. Soft tissues: Some extravasated radiotracer at the dorsal right hand and distal forearm. Left palmar muscle FDG uptake without underlying CT abnormality is likely physiologic activation or strain. METRICS: Mediastinal blood pool: SUV mean 2.0 Liver uptake: SUV mean 2.3 PET/PET skull to thigh INIT [id number] assessment IMPRESSION: 1. Approximately 2.9 cm FDG avid left pharyngeal mass compatible with reported tonsillar malignancy. 2. Enlarged FDG avid metastatic left level 2 lymph node. 3. Subacute healing anterolateral right 3rd through 5th rib fractures. 4. Trace right pleural effusion. 5. Additional chronic and incidental findings as above, to include atherosclerosis, cholelithiasis, nonacute hardware fixed proximal right femur fracture deformity with suggested iliopsoas bursitis.
== END 2024-04-26 09:29 | disposition home or self-care (01) ==
LOC: RAD 09:28
PROVIDERS: PCP Nurse Practitioner; Visit Provider Specialist
DX: C09.8 Malignant neoplasm of overlapping sites of tonsil (principal); R59.0 Localized enlarged lymph nodes; K80.20 Calculus of gallbladder without cholecystitis without obstruction; K86.89 Other specified diseases of pancreas; D73.89 Other diseases of spleen; M43.26 Fusion of spine, lumbar region; Z87.311 Personal history of (healed) other pathological fracture
CPT/HCPCS: 78815; A9552

== ENCOUNTER 2024-05-20 13:15 | Oncology outpatient (recurring) (ONCR) | payer MEDICARE, OTHER, SELFPAY ==
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
--- NOTE | 2024-05-14 14:24 | ONCRAD TMN_ITS ---
Radiation Oncology Weekly Treatment Management Patient: Forester Cano MR#: [id number] : 1950> Attending Physician: Dr. Yumiko Antunez Date of Service: 05/14/2024 Fractions: 5 of 35 Referring Physician(s) : Diagnosis: C09.9 - Malignant neoplasm of tonsil, unspecified, Diagnosed 05/01/2024 (Active) C77.0 - Secondary and unspecified malignant neoplasm of lymph nodes of head, face and neck, Diagnosed 05/01/2024 (Active) Radiotherapy to date: Course: L tonsil, Treatment Site: Head [id number], Ref. ID: [id number], Energy: 6X, Dose/Fx (cGy): 200, #Fx: 5 / 35, Dose Correction (cGy): 0, Total Dose Delivered (cGy): 1,000, Start Date: 05/08/2024, Elapsed Days: 6 Reason for visit: The patient is being seen today as part of their regularly scheduled weekly on treatment visits to assess for acute toxicities from radiotherapy. Review of Systems: Patient has had no changes as yet Vital Signs: Performed on 05/14/2024 1:55 PM BMI - 25.794 kg/m2 (high), Height - 78 in, Weight - 223.2 lbs, Temperature - 97.1 f, Pulse - 61 /min, Respiration - 18 /min, O2 Sat - 96 %, Pain - 0, Fatigue - 0 and BP - 172/ 82 mm(hg)(high/). Physical Exam: No changes on exam Imaging: Radiation therapy imaging related to accurate target localization (i.e. KV, MV and CBCT) was reviewed. Appropriate changes, if any, were made to ensure treatment accuracy. Plan: Will continue with his treatments as planned. I did review with him the risks and side effects again. Signed by: Dr. Yumiko Antunez 05/14/2024 2:22:38 PM
== END 2024-05-20 23:59 | disposition home or self-care (01) ==
PROVIDERS: PCP Nurse Practitioner; Visit Provider Radiology Radiation Oncology
DX: Z51.0 Encounter for antineoplastic radiation therapy (principal); C09.9 Malignant neoplasm of tonsil, unspecified; C77.0 Secondary and unspecified malignant neoplasm of lymph nodes of head, face and neck
CPT/HCPCS: 77300; 77301; 77334; 77336; 77338; 77386; 99024; 99205

== ENCOUNTER 2024-05-24 11:30 | Oncology outpatient (recurring) (ONCR) | payer MEDICARE, OTHER, SELFPAY ==
--- NOTE | 2024-05-21 14:09 | ONCRAD TMN_ITS ---
Radiation Oncology Weekly Treatment Management Patient: Miguel Beauchamp#: [id number] : 1950 Attending Physician: Dr. 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 ID: [id number], Energy: 6X, Dose/Fx (cGy): 200, #Fx: , Dose Correction (cGy): 0, Total Dose Delivered (cGy): 1,990.5, Start Date: 05/08/2024, Elapsed Days: 13 Reason for visit: The patient is being seen today as part of their regularly scheduled weekly on treatment visits to assess for acute toxicities from radiotherapy. Review of Systems: Patient has noticed increased dry mouth. He is also having increased problems with urination which has been going on for several years. He is on Flomax once a day. Vital Signs: Performed on 05/21/2024 1:46 PM BMI - 26.441 kg/m2 (high), Height - 78 in, Weight - 228.8 lbs, Temperature - 97.4 f, Pulse - 55 /min (low), Respiration - 16 /min, O2 Sat - 97 %, Pain - 6, Fatigue - 0 and BP - 113/ 76 mm(hg). Physical Exam: No changes on exam. Skin is without changes Imaging: Radiation therapy imaging related to accurate target localization (i.e. KV, MV and CBCT) was reviewed. Appropriate changes, if any, were made to ensure treatment accuracy. Plan: I asked him at this point to double up on his Flomax. He will try that for a day or 2 to see if that improves it. He will eventually need a referral to urology and his is going to get a name for me to put into the referral process. I have also given him some samples of XyliMelts to try to see if this will help alleviate his dry mouth. Will otherwise continue with his treatments as planned Signed by: Dr. Yumiko Antunez 05/21/2024 2:07:56 PM
== END 2024-05-24 23:59 | disposition home or self-care (01) ==
PROVIDERS: PCP Nurse Practitioner; Visit Provider Radiology Radiation Oncology
DX: Z51.0 Encounter for antineoplastic radiation therapy (principal); C09.9 Malignant neoplasm of tonsil, unspecified; C77.0 Secondary and unspecified malignant neoplasm of lymph nodes of head, face and neck
CPT/HCPCS: 77336; 77386; 99024

== ENCOUNTER 2024-06-17 12:35 | Oncology outpatient (recurring) (ONCR) | payer MEDICARE, OTHER, SELFPAY ==
--- NOTE | 2024-05-27 14:24 | ONCRAD TMN_ITS ---
Radiation Oncology Weekly Treatment Management Patient: Forester Cano MR#: [id number] : 1950> Attending Physician: Dr. 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 ID: [id number], Energy: 6X, Dose/Fx (cGy): 200, #Fx: , Dose Correction (cGy): 0, Total Dose Delivered (cGy): 2,800, Start Date: 05/08/2024, End Date: 05/27/2024, Elapsed Days: 19 Reason for visit: The patient is being seen today as part of their regularly scheduled weekly on treatment visits to assess for acute toxicities from radiotherapy. Review of Systems: Patient has noticed marked increased difficulty with swallowing. He is tongue is sore and swollen. He has been able to get ice cream down over the weekend Vital Signs: Performed on 05/27/2024 1:34 PM BMI - 25.886 kg/m2 (high), Height - 78 in, Weight - 224 lbs, Temperature - 97.4 f, Pulse - 68 /min, Respiration - 17 /min, O2 Sat - 96 %, Pain - 8, Fatigue - 0 and BP - 172/ 83 mm(hg)(high/). Physical Exam: On exam his weight is down about 4 pounds from last week. His oral cavity reveals what appears to be thrush across his tongue and soft palate as well as some early mucositis. Imaging: Radiation therapy imaging related to accurate target localization (i.e. KV, MV and CBCT) was reviewed. Appropriate changes, if any, were made to ensure treatment accuracy. Plan: At this point of asked him to continue to take and what he can in terms of ice cream. We talked about using a straw to get his Ensure and. I have told him he needs 6 cans a day. I have also sent Diflucan to the pharmacy and will have him start that today. Hopefully this will kick in within the next 48 hours and some of this irritation will clear. Will otherwise continue with his treatments as planned Signed by: Dr. Yumiko Antunez 05/27/2024 2:22:24 PM
--- NOTE | 2024-06-04 08:18 | ONCRAD TMN_ITS ---
Radiation Oncology Weekly Treatment Management Patient: Miguel Beauchamp MR#: [id number] : 1950 Attending Physician: Dr. 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 ID: [id number], Energy: 6X, Dose/Fx (cGy): 200, #Fx: 35, Dose Correction (cGy): 0, Total Dose Delivered (cGy): 3,800, Start Date: 05/08/2024, Elapsed Days: 26 Reason for visit: The patient is being seen today as part of their regularly scheduled weekly on treatment visits to assess for acute toxicities from radiotherapy. Review of Systems: Patient continues to have irritation of his lips at the corner of his lips on the left side. The remainder of his skin is without changes. He does have a mild mucositis developing orally. The thrush is cleared. Vital Signs: Performed on 06/03/2024 2:01 PM BMI - 25.701 kg/m2 (high), Height - 78 in, Weight - 222.4 lbs, Temperature - 98 f, Pulse - 163 /min (high), Respiration - 18 /min, O2 Sat - 96 %, Pain - 5, Fatigue - 0 and BP - 102/ 67 mm(hg). Physical Exam: Moist desquamation of the lips at the corner of his mouth. Mild beginnings of mucositis orally. Imaging: Radiation therapy imaging related to accurate target localization (i.e. KV, MV and CBCT) was reviewed. Appropriate changes, if any, were made to ensure treatment accuracy. Plan: I have asked him to use a triple antibiotic ointment on his lips. Will otherwise try and get through the last third of his treatment. We did talk about how with his decreased p.o. intake he would be more susceptible to fatigue and even lightheadedness. I asked him to increase the amount that he is taking in. Signed by: Dr. Yumiko Antunez 06/04/2024 8:16:08 AM
[2024-06-10 13:00] VITALS: BP 168/84; PULSE 90; RESP 16; TEMP 36.6; O2SAT 98
[2024-06-10] MEDS: sodium chloride 0.9% 1,000 ML 999 ML IV (14:56)
--- NOTE | 2024-06-10 15:30 | ONCRAD TMN_ITS ---
Radiation Oncology Weekly Treatment Management Patient: Forester Cano MR#: [id number] : 1950> Attending Physician: Dr. 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 ID: [id number], Energy: 6X, Dose/Fx (cGy): 200, #Fx: 35, Dose Correction (cGy): 0, Total Dose Delivered (cGy): 4,400, Start Date: 05/08/2024, Elapsed Days: 33 Reason for visit: The patient is being seen today as part of their regularly scheduled weekly on treatment visits to assess for acute toxicities from radiotherapy. Review of Systems: Patient continues to have difficulty swallowing. His throat is gotten worse. His mouth is also gotten more sore. The lidocaine is no longer working. Vital Signs: Performed on 06/10/2024 1:56 PM BMI - 23.806 kg/m2 (high), Height - 78 in, Weight - 206 lbs, Temperature - 96.8 f, Pulse - 78 /min, Respiration - 18 /min, O2 Sat - 96 %, Pain - 10, Fatigue - 0 and BP - 161/ 86 mm(hg)(high/). Physical Exam: On exam externally has some erythema and dryness. Oral cavity reveals mucositis across the soft palate and the left cheek as well as his left lower lip. Imaging: Radiation therapy imaging related to accurate target localization (i.e. KV, MV and CBCT) was reviewed. Appropriate changes, if any, were made to ensure treatment accuracy. Plan: We talked today about doing IV fluids and after discussion with his infusion nurse will add a dose of Diflucan and a dose of IV pain medicine as well. At this point have given him the rest of the week off and we will see him back on Monday to hopefully restart his treatment. Signed by: Dr. Yumiko Antunez 06/10/2024 3:29:11 PM
[2024-06-10 15:32] VITALS: RESP 16
[2024-06-10] MEDS: morphine 4 mg/mL SDV 1 mL 2 MG IVP (15:32)
[2024-06-10] MEDS: fluconazole premix 100 MG in empty flexible container 1 EACH 50 MG IV (15:38)
--- NOTE | 2024-06-17 14:22 | ONCRAD TMN_ITS ---
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 ID: [id number], Energy: 6X, Dose/Fx (cGy): 200, #Fx: 22 / 35, Dose Correction (cGy): 0, Total Dose Delivered (cGy): 4,400, Start Date: 05/08/2024, Elapsed Days: 33 Reason for visit: The patient is being seen today as part of their regularly scheduled weekly on treatment visits to assess for acute toxicities from radiotherapy. Patient has severe mucositis and has been off treatment for 1 week. We will recommend another week off at this time. He also is working on his left sided skin reaction. Review of Systems: Vital Signs: Performed on 06/17/2024 1:48 PM BMI - 23.228 kg/m2 (high), Height - 78 in, Weight - 201 lbs, Temperature - 97.0 f, Pulse - 93 /min, Respiration - 16 /min, O2 Sat - 98 %, Pain - 15 (high), Fatigue - 0 and BP - 155/ 85 mm(hg)(high/). Physical Exam: Alert and oriented and answers questions appropriately. Oral cavity exam shows severe mucositis. Left neck shows scabbing formations but no moist desquamation. Imaging: Radiation therapy imaging related to accurate target localization (i.e. KV, MV and CBCT) was reviewed. Appropriate changes, if any, were made to ensure treatment accuracy. Plan: Diflucan 200 mg first day followed by 100 mg thereafter for total dose of 10 days. [place] 7.5 and liquid preparation of 200 cc preparation. RTC on 06/24/2024 to restart treatment. CeraVe or Aquaphor liberally to left and right neck. Signed by: Timothy Galloway 06/17/2024 2:21:33 PM
== END 2024-06-21 23:59 | disposition home or self-care (01) ==
PROVIDERS: PCP Nurse Practitioner; Visit Provider Radiology Radiation Oncology
DX: Z51.0 Encounter for antineoplastic radiation therapy (principal); C09.9 Malignant neoplasm of tonsil, unspecified; C77.0 Secondary and unspecified malignant neoplasm of lymph nodes of head, face and neck
CPT/HCPCS: 77336; 77386; 96365; 96367; 96375; 99024; J1450; J2270; J7030

== ENCOUNTER 2024-07-10 12:06 | Oncology outpatient (recurring) (ONCR) | payer MEDICARE, OTHER, SELFPAY ==
--- NOTE | 2024-06-24 14:43 | ONCRAD TMN_ITS ---
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 ID: [id number], Energy: 6X, Dose/Fx (cGy): 200, #Fx: 23 / 35, Dose Correction (cGy): 0, Total Dose Delivered (cGy): 4,600, Start Date: 05/08/2024, Elapsed Days: 47 Reason for visit: The patient is being seen today as part of their regularly scheduled weekly on treatment visits to assess for acute toxicities from radiotherapy. Review of Systems: Significant posterior oropharynx and uvula mucositis Vital Signs: Performed on 06/24/2024 1:51 PM BMI - 22.512 kg/m2, Height - 78 in, Weight - 194.8 lbs, Temperature - 96.8 f, Pulse - 94 /min, Respiration - 18 /min, O2 Sat - 90 % (low), Pain - 4, Fatigue - 4 and BP - 143/ 90 mm(hg)(high/). Physical Exam: Alert and oriented and answers questions appropriately. Oral cavity shows confluent mucositis significant Imaging: Radiation therapy imaging related to accurate target localization (i.e. KV, MV and CBCT) was reviewed. Appropriate changes, if any, were made to ensure treatment accuracy. Plan: Continue XRT Nystatin swish and swallow Signed by: Timothy Galloway 06/24/2024 2:41:44 PM
--- NOTE | 2024-06-28 10:57 | N.ONRD TS_ITS ---
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 ID: [id number], Energy: 6X, Dose/Fx (cGy): 200, #Fx: 26 / 35, Dose Correction (cGy): 0, Total Dose Delivered (cGy): 5,200, Start Date: 05/08/2024, End Date: 06/27/2024, Elapsed Days: 50 Clinical Summary: The patient tolerated RT well. Patient had significant posterior oral for mucositis which finally responded to nystatin swish and swallow. Plan: End of treatment today. Continue on the above medication until the skin reaction resolves. Continue liquid nystatin Follow up in one month. Signed by: Timothy Galloway>06/28/2024 10:56:13 AM <<Signature on File>>
--- NOTE | 2024-07-02 14:14 | ONCRAD TMN_ITS ---
Radiation Oncology Weekly Treatment Management Patient: Forester Cano MR#: [id number] : 1950> Attending Physician: Dr. 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 ID: [id number], Energy: 6X, Dose/Fx (cGy): 200, #Fx: 29 / 35, Dose Correction (cGy): 0, Total Dose Delivered (cGy): 5,800, Start Date: 05/08/2024, Elapsed Days: 55 Reason for visit: The patient is being seen today as part of their regularly scheduled weekly on treatment visits to assess for acute toxicities from radiotherapy. Review of Systems: Patient has gained 4 pounds. He is feeling stronger and has less soreness Vital Signs: Performed on 07/02/2024 1:41 PM BMI - 22.974 kg/m2 (high), Height - 78 in, Weight - 198.8 lbs, Temperature - 96.9 f, Pulse - 77 /min, Respiration - 16 /min, O2 Sat - 94 % (low), Pain - 3, Fatigue - 0 and BP - 97/ 65 mm(hg). Physical Exam: On exam he has mucositis across the palate. He has thrush on his tongue. His lip is healed up nicely. His skin is erythematous and dry Imaging: Radiation therapy imaging related to accurate target localization (i.e. KV, MV and CBCT) was reviewed. Appropriate changes, if any, were made to ensure treatment accuracy. Plan: Will continue with his treatments as planned Signed by: Dr. Yumiko Antunez 07/02/2024 2:13:02 PM
--- NOTE | 2024-07-09 13:45 | ONCRAD TMN_ITS ---
Radiation Oncology Weekly Treatment Management Patient: Forester Cano MR#: [id number] : 1950> Attending Physician: Dr. 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 ID: [id number], Energy: 6X, Dose/Fx (cGy): 200, #Fx: 34 / 35, Dose Correction (cGy): 0, Total Dose Delivered (cGy): 6,800, Start Date: 05/08/2024, Elapsed Days: 62 Reason for visit: The patient is being seen today as part of their regularly scheduled weekly on treatment visits to assess for acute toxicities from radiotherapy. Review of Systems: Patient is stable. He is actually gained a pound. His oral cavity reveals mucositis and thrush. Vital Signs: Performed on 07/09/2024 1:16 PM BMI - 23.043 kg/m2 (high), Height - 78 in, Weight - 199.4 lbs, Temperature - 97.2 f, Pulse - 86 /min, Respiration - 18 /min, O2 Sat - 96 %, Pain - 2, Fatigue - 5 and BP - 136/ 87 mm(hg). Physical Exam: Oral cavity reveals mucositis and thrush. His lip is healed up nicely. The external skin is erythematous and dry Imaging: Radiation therapy imaging related to accurate target localization (i.e. KV, MV and CBCT) was reviewed. Appropriate changes, if any, were made to ensure treatment accuracy. Plan: He will be finished with his treatments tomorrow. We talked about the usual recovery process. Of asked him to call if he should have any problems over the next week or 2 and we can always get him back for IV fluids. Signed by: Dr. Yumiko Antunez 07/09/2024 1:44:31 PM
--- NOTE | 2024-07-10 14:44 | N.ONRD TS_ITS ---
Radiation Oncology Treatment Summary Patient: >Miguel> MR#: [id number] : 1950> Age: 73> Sex: Male Dictated by: Dr. 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 ID: [id number], Energy: 6X, Dose/Fx (cGy): 200, #Fx: 35 / 35, Dose Correction (cGy): 0, Total Dose Delivered (cGy): 7,000, Start Date: 05/08/2024, End Date: 07/10/2024, Elapsed Days: 63 Clinical Summary: The patient tolerated RT well. Patient experienced mucositis and thrush. He also had dry desquamation of the skin. He really seemed to have more trouble with the first half of his treatment than he did the last 2 weeks. Plan: End of treatment today. Continue on the above medication until the skin reaction resolves. Follow up in one month. Signed by: Dr. Yumiko Antunez>07/10/2024 2:42:19 PM <<Signature on File>>
== END 2024-07-22 23:59 | disposition home or self-care (01) ==
PROVIDERS: PCP Nurse Practitioner; Visit Provider Radiology Radiation Oncology
DX: Z51.0 Encounter for antineoplastic radiation therapy (principal); C09.9 Malignant neoplasm of tonsil, unspecified; C77.0 Secondary and unspecified malignant neoplasm of lymph nodes of head, face and neck
CPT/HCPCS: 77336; 77386; 80053; 80061; 83036; 84443; 99024

== ENCOUNTER 2024-08-02 11:53 | Emergency (ER) | payer MEDICARE, OTHER, SELFPAY ==
[2024-08-02] VITALS (7 sets, daily range): BP systolic 117–184; BP diastolic 62–96; PULSE 89–109; RESP 15–18; TEMP 37.7; O2SAT 91–98; BMI 15.5
--- NOTE | 2024-08-02 12:00 | XR_ITS ---
WS: [id number] Exam: XR chest 1V portable [id number] Date/Time of Exam: 08/02/2024 12:06 PM Reason For Exam: Weakness Comparison 05/30/2017. Lungs are clear. Unremarkable cardiomediastinal silhouette for technique. No pleural effusion. Plaque atelectasis RIGHT base. Bony structures are intact. DJD of the LEFT shoulder. XR/XR chest 1V portable [id number] IMPRESSION: 1. No acute cardiopulmonary finding.
--- NOTE | 2024-08-02 12:00 | XR_ITS ---
WS: [id number] Exam: XR pelvis 1-2V* [id number] Date/Time of Exam: 08/02/2024 12:06 PM Reason For Exam: hip pain Comparison 10/01/2023. Old intertrochanteric fracture of the RIGHT hip is noted. There is internal fixation with a femoral neck screw and partially visualized intramedullary mateo. There is significant lucent reaction about the intramedullary mateo suggesting loosening. The femoral neck screw has eroded through the femoral head into the acetabulum since the last exam. There is operative fusion of the lumbar spine at L5-S1. Pedicle screws and posterior rods are noted. The S1 pedicle screw on the LEFT is fractured. Recommendations: Complete imaging of the femoral mateo and oblique views of the RIGHT hip should be considered for more detailed evaluation. CT might also be considered for further work-up. XR/XR pelvis 1-2V* [id number] IMPRESSION: 1. Old intertrochanteric fracture of the RIGHT hip with internal fixation. The femoral intramedullary mateo appears to have loosened. The femoral neck screw has eroded through the femoral head into the acetabulum.
--- NOTE | 2024-08-02 12:02 | ED_ITS ---
HPI - Extremity Problem 2 General: Chief complaint: Extremity Problem,Nontraumatic Stated complaint: ams - chronic hip pain Time Seen by Provider: 08/02/24 11:54 History of Present Illness: 73-year-old man with a history of chroni c hip issues and chronic pain syndrome on hydrocodone who presents the emergency room with worsening right sided hip pain. Is also had some fever recently. No other symptoms really other than pain. No cough. No altered mental status. No focal motor deficits. No nausea or vomiting. No shortness of breath. Related Data Home Medications ?Medication ?Instructions ?Recorded ?Confirmed fluticasone propionate 50 1 spray intranasal DAILY 03/1808/02/24 mcg/actuation nasal spray,suspension tizanidine 4 mg tablet 4 mg PO BID PRN Muscle Spast icity 08/02/24 08/02/24 tramadol 50 mg tablet 50 mg PO Q8H PRN Pain 08/02/24 Previous Rx's ?Medication ?Instructions ?Recorded Diabetic Tennis Shoes with 3 Pairs #1 ea 11/30/21 of Inserts flash glucose scanning reader #1 ea 12/30/21 (FreeStyle Oleg 14 Day [place]) flash glucose sensor (FreeStyle #2 ea 12/30/21 Oleg 14 Day Sensor kit) pen needle, diabetic 32 gauge x #360 ea 03/31/2204/27 (BD Ultra-Fine Micro Pen Needle) Custom molded accommodative #1 ea 01/24/23 diabetic shoes insulin glargine 100 unit/mL (3 See Rx Instructions KATE BCUT BID #30 04/09/24 mL) subcutaneous pen (Lantus mL Solostar U-100 Insulin) diabetic shoes and inserts #1 ea 05/02/24 hydrocodone 7.5 mg-acetaminophen 15 ml PO Q8H PRN pain 5 days #200 06/17/24 325 mg/15 mL oral solution mL levothyroxine 200 mcg tablet 200 mcg PO DAILY #30 tabs 06/24/24 lisinopril 10 mg tablet 10 mg PO DAILY #30 tabs 07/16 blood-glucose meter,continuous #1 ea 06/27/24 (Dexcom G7 Warp Knit Operator) blood-glucose sensor (Dexcom G7 #12 ea 06/27/24 Sensor device) insulin lispro 100 unit/mL See Rx Instructions SUBCUT TID #15 06/27/24 subcutaneous pen (Humalog KwikPen mL (U-100) Insulin) levothyroxine 25 mcg tablet 25 mcg PO QDAY #30 tabs polyethylene glycol 3350 17 17 g PO DAILY #510 grams 0 08/02/24 gram/dose oral powder (Miralax) doxycycline monohydrate 100 mg 100 mg PO BID 10 days # 20 caps 08/03/24 capsule oxycodone 5 mg tablet 5 mg PO Q8H PRN pain #20 tab s 08/03/24 Allergies Allergy/AdvReac Type Severity Reaction Status Date / Time metformin Allergy Unknown Unknown Verified 06/24/24 15:15 [facility] AdvReac Severe edema Verified 06/24/24 15:15 Review of Systems 2 Narrative: Constitutional symptoms: Negative except as documented in HPI. Skin symptoms: Negative except as documented in HPI. Eye symptoms: Negative except as documented in HPI. ENMT symptoms: Negative except as documented in HPI. Respiratory symptoms: Negative except as documented in HPI. Cardiovascular symptoms: Negative except as documented in HPI. Gastrointestinal symptoms: Negative except as documented in HPI. Genitourinary symptoms: Negative except as documented in HPI. Musculoskeletal symptoms: Negative except as documented in HPI. Neurologic symptoms: Negative except as documented in HPI. Psychiatric symptoms: Negative except as documented in HPI. Endocrine symptoms: Negative except as documented in HPI. 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 Erectile dysfunction Hematospermia Elevated PSA GERD (gastroesophageal reflux disease) DDD (degenerative disc disease), lumbar Adult onset hypothyroidism Benign essential hypertension with target blood pressure below 140/90 Surgical History S/P ORIF (open reduction internal fixation) fracture July 05 Right femur mateo, plate, screws at [place] History of back surgery 2016 History of cataract surgery Both eyes 2015 Family History Other Diabetes Hypertension Social History (Reviewed 06/24/24 @ 15:14 by JOHN Argueta Smoking and tobacco/nicotine status: never used tobacco/nicotine Alcohol intake: unknown Substance/Drug Use: never Adopted: No Caregiver/support person: No Lives independently: Yes Household members: spouse Housing: House Marital status: Number of children: 2 service: No Current occupational status: retired Pets and animals: Yes Pets & animals: farm animals Do you think of yourself as: Straight/Heterosexual Current gender identity: Male Physical Exam 2 Narrative: EXAM NARRATIVE: General: Alert, no acute distress. Skin: Warm, dry. Head: Normocephalic, atraumatic. Neck: Supple, trachea midline. Eye: Extraocular movements are intact. Ears, nose, mouth and throat: mucosa moist. Cardiovascular: Regular, Normal peripheral perfusion. Respiratory: Lungs are clear to auscultation, respirations are non-labored, breath sounds are equal, Symmetrical chest wall expansion. Gastrointestinal: Soft, Nontender, Non distended Musculoskeletal: Some shortening and rotation of the right leg. Apparently this is chronic. Neurological: Alert and oriented, No focal neurological deficit observed. Psychiatric: Cooperative, appropriate mood & affect. Course 2 Vital Signs: Vital signs: Vital Signs Temperature 100 F H 08/02/24 11:55 Pulse Rate 92 08/02/24 18:03 Respiratory Rate 16 08/02/24 18:03 Blood Pressure 137/86 08/02/24 18:03 Pulse Oximetry 97 08/02/24 18:03 Oxygen Delivery Me thod Room Air 08/02/24 16:00 Oxygen Flow Rate 2 08/02/24 13:19 MDM - Extremity (Nontraumatic) Medical Decision Making Lab Review: Laboratory results were reviewed and interpreted by myself the emergency room physician. I reviewed the patient's medical record. Reexamination: Patient has had some fevers. He has some mild leukocytosis. However no signs of infection. No urinary tract infection no cough. No signs of infection on x- ray. Also CT to his hip and pelvis to rule out any infection there and this is negative as well. Placing him on Omnicef and sending him home with some oxycodone for now. With instructions to follow-up with Ortho and to talk to his PCP or pain provider about further pain control. Consultation. I talked with Dr. Davila who is on-call for orthopedics. She reviewed films and recommends that the patient has an outpatient follow-up with orthopedics who had done his surgery as he has some loosening of his hardware. Assessment and plan: Chronic hip pain Hardware loosening Fever ?Cefepime in the emergency room. - Discharged home - Discussed plan with patient. Answered any questions. - Evaluation and treatment of this problem were appropriate in the emergency setting. Lab Data 08/02/24 12:17 08/02/24 12:17 Radiology Impressions Chest X-Ray 08/02/24 12:00 IMPRESSION: 1. No acute cardiopulmonary finding. Pelvis X-Ray 08/02/24 12:00 IMPRESSION: 1. Old intertrochanteric fracture of the RIGHT hip with internal fixation. The femoral intramedullary mateo appears to have loosened. The femoral neck screw has eroded through the femoral head into the acetabulum. Femur X-Ray 08/02/24 13:26 IMPRESSION: 1. Old intertrochanteric fracture of the RIGHT hip stabilized with internal fixation. There are changes along the proximal end of the intramedullary mateo suggesting loosening. The femoral neck screw has eroded through the femoral head into the acetabulum. There is erosion of the midportion of the acetabulum. 2. 2 transverse anchoring screws in the lower end of the femoral mateo of both fracture Lumbar Spine CT 08/02/24 14:19 IMPRESSION: 1. Advanced osseous demineralization. 2. Chronic grade 1 L5-S1 spondylolisthesis status post instrumented posterior spinal fusion with interbody disc spacer. 3. Chronic L1 compression fracture status post vertebroplasty. 4. No acute fracture. 5. Multilevel lumbar spondylosis. Pelvis CT 08/02/24 14:19 IMPRESSION: 1. Postoperative change from instrumented fixation of right femoral intratrochanteric fracture. The femoral neck screw extends through the femoral head into the femoroacetabular joint. 2. No significant bony bridging across the right intertrochanteric fracture suggesting at least partial nonunion. 3. No acute osseous abnormality. Laboratory Results WBC 16.70 10^3/uL (3.29-11.43) H 08/02/24 12:17 RBC 4.50 10^6/uL (3.85-5.65) 08/02/24 12:17 Hgb 13.60 g/dL (11.27-16.99) 08/02/24 12:17 Hct 40.6 % (37-53) 08/02/24 12:17 MCV 90.2 fl (82-101) 08/02/24 12:17 MCH 30.2 pg (27-33) 08/02/24 12:17 MCHC 33.5 g/dL (30-55) 08/02/24 12:17 RDW 13.1 % (12.1-15.1) 08/02/24 12:17 Plt Count 269 10^3/cmm (157-399) 08/02/24 12:17 MPV 9.0 fL (7.4-10.4) 08/02/24 12:17 Neut % (Auto) 85.7 % 08/02/24 12:17 Lymph % (Auto) 7.0 % 08/02/24 12:17 [place] % (Auto) 6.7 % 08/02/24 12:17 Eos % (Auto) 0.0 % 08/02/24 12:17 Baso % (Auto) 0.2 % 08/02/24 12:17 Neut # (Auto) 14.32 10^3/uL (1.8-7.7) H 08/02/24 12:17 Lymph # (Auto) 1.2 10^3/uL (0.8-4.8) 08/02/24 12:17 [place] # (Auto) 1.1 10^3/uL (0.2-0.9) H 08/02/24 12:17 Eos # (Auto) 0.0 10^3/uL (0.0-0.8) 08/02/24 12:17 Baso # (Auto) 0.0 10^3/uL (0.0-0.1) 08/02/24 12:17 Nucleated RBC % (auto) 0 % 08/02/24 12:17 Nucleated RBCs # 0.0 /100WBC 08/02/24 12:17 Sodium 127 mmol/L (136-145) L 08/02/24 12:17 Potassium 4.1 mmol/L (3.5-5.1) 08/02/24 12:17 Chloride 90 mmol/L (98-107) L 08/02/24 12:17 Carbon Dioxide 24 mmol/L (22-29) 08/02/24 12:17 Anion Gap 17.1 (5-19) 08/02/24 12:17 BUN 10 mg/dL (8-23) 08/02/24 12:17 Creatinine 0.7 mg/dL (0.7-1.2) 08/02/24 12:17 GFR Calculation Not Reportable 08/02/24 12:17 Glucose 277 mg/dL (65-115) H 08/02/24 12:17 Calculated Osmolality 273 mOsm/kg (285-295) L 08/02/24 12:17 Lactic Acid 2.9 mmol/L (0.5-2.2) H 08/02/24 12:17 Lactic Acid (Sepsis) 2.1 mmol/L (0.5-2.2) 08/02/24 15:01 Calcium 8.9 mg/dL (8.5-10.5) 08/02/24 12:17 Total Bilirubin 2.0 mg/dL (0.15-1.2) H 08/02/24 12:17 AST 24 U/L (0-40) 08/02/24 12:17 ALT 23 U/L (0-41) 08/02/24 12:17 Alkaline Phosphatase 133 U/L (40-130) H 08/02/24 12:17 C-Reactive Protein 151.1 mg/L (0.0-4.9) H 08/02/24 12:17 Total Protein 6.8 g/dL (6.6-8.7) 08/02/24 12:17 Albumin 3.5 g/dL (3.5-5.2) 08/02/24 12:17 Globulin 3.3 g/dL (1.3-4.6) 08/02/24 12:17 Procalcitonin 2.09 ng/mL (0-0.5) H 08/02/24 12:17 Urine Color Yellow (Yellow) 08/02/24 12:31 Urine Appearance Clear (CLEAR) 08/02/24 12:31 Urine pH 6.5 (5-7) 08/02/24 12:31 Ur Specific [place] 1.015 (1.005-1.030) 08/02/24 12:31 Urine Protein Trace (Negative) 08/02/24 12:31 Urine Glucose (UA) 4+ (Normal) H 08/02/24 12:31 Urine Ketones 1+ (Negative) H 08/02/24 12:31 Urine Blood 2+ (Negative) H 08/02/24 12:31 Urine Nitrate Negative (Negative) 08/02/24 12:31 Urine Bilirubin Neg (Negative) 08/02/24 12:31 Urine Urobilinogen Neg mg/dL (Negative) 08/02/24 12:31 Ur Leukocyte Esterase Negative (Negative) 08/02/24 12:31 Urine RBC 0-2 /hpf (0-2) 08/02/24 12:31 Urine WBC 0-5 /hpf (0-5) 08/02/24 12:31 Ur Squamous Epith Cells 0-5 /hpf (0-5) 08/02/24 12:31 Amorphous Sediment Not Reportable 08/02/24 12:31 Urine Bacteria None seen /hpf (NONE) 08/02/24 12:31 Hyaline Casts 0.81 /lpf 08/02/24 12:31 Influenza A (PCR) Negative (Negative) 08/02/24 12:21 Influenza Type B (PCR) Negative (Negative) 08/02/24 12:21 RSV (PCR) Negative (Negative) 08/02/24 12:21 SARS-CoV-2 (PCR) Negative (Negative) 08/02/24 12:21 All radiology interpretation(s) finalized by discharge Discharge Plan Discharge Patient Disposition: Home Clinical Impression: Chronic hip pain, Fever Condition: Stable Prescriptions: New polyethylene glycol 3350 [Miralax] 17 gram/dose powder 17 g PO DAILY Qty: 510 0RF Rx Instructions: Take 1 scoop daily while taking pain medications. doxycycline monohydrate 100 mg capsule 100 mg PO BID 10 Days Qty: 20 0RF oxycodone 5 mg tablet 5 mg PO Q8H PRN (Reason: pain) Qty: 20 0RF No Action (DME) Diabetic Tennis Shoes with 3 Pairs of Inserts See Rx Instructions .Route .MEDSUPPLY Qty: 1 0RF Rx Instructions: As directed by [employer] (DME) pen needle, diabetic [BD Ultra-Fine Micro Pen Needle] 32 gauge x 1/4 needle See Rx Instructions .ROUTE .MEDSUPPLY Qty: 360 3RF Rx Instructions: As directed (DME) diabetic shoes and inserts See Rx Instructions .Route .MEDSUPPLY Qty: 1 0RF Rx Instructions: As directed lisinopril 10 mg tablet 10 mg PO DAILY Qty: 30 2RF levothyroxine 200 mcg tablet 200 mcg PO DAILY Qty: 30 5RF Rx Instructions: along with 25mcg [id number] total (DME) FreeStyle Oleg 14 Day [place] Misc See Rx Instructions .ROUTE .MEDSUPPLY Qty: 1 0RF Rx Instructions: As directed (DME) FreeStyle Oleg 14 Day Sensor Kit See Rx Instructions .ROUTE .MEDSUPPLY Qty: 2 3RF Rx Instructions: As directed (DME) Custom molded accommodative diabetic shoes See Rx Instructions .Route .MEDSUPPLY Qty: 1 0RF Rx Instructions: As directed insulin glargine [Lantus Solostar U-100 Insulin] 100 unit/mL (3 mL) insulin pen See Rx Instructions SUBCUT BID Qty: 30 2RF Rx Instructions: up to 50U subcutaneously twice a day; hydrocodone-acetaminophen 7.5-325 mg/15 mL solution 15 ml PO Q8H PRN (Reason: pain) 5 Days Qty: 200 0RF (DME) Dexcom G7 Sensor Device See Rx Instructions .ROUTE .MEDSUPPLY Qty: 12 3RF Rx Instructions: change every 10 days (DME) Dexcom G7 Warp Knit Operator Misc See Rx Instructions .Route Qty: 1 0RF Rx Instructions: As directed insulin lispro [Humalog KwikPen Insulin] 100 unit/mL insulin pen See Rx Instructions SUBCUT TID Qty: 15 2RF Rx Instructions: Take by subcutaneous injection per sliding scale 3 times daily: 110-129=3U 130-150=6U 151-200=9U 201-250=12U 251-300=15U 301-350=18U 351-400=21U >400=24U levothyroxine 25 mcg tablet 25 mcg PO QDAY Qty: 30 2RF Rx Instructions: along with 200mcg [id number] total tizanidine 4 mg tablet 4 mg PO BID PRN (Reason: Muscle Spasticity) tramadol 50 mg tablet 50 mg PO Q8H PRN (Reason: Pain) fluticasone propionate 50 mcg/actuation spray,suspension 1 spray INTRANASAL DAILY Discharge Orders: Discharge ED (Routine); Ordered 08/02/24 Ordered By: Shraddha Wood Referrals: Corey Martin, CHEMICAL PLANT OPERATOR-C [Primary Care Provider] - Queenie Johnson MD [Physician] - (Please call for a follow-up appointment with orthopedics with either Dr. Davila or with Dr. Avila as you choose. Dr. Avila is now in [place]) Discharge Diet: Advance as tolerated Discharge Activity: Increase activity as tolerated Patient Instructions: Opioid Safety, Pain Management Activity Restrictions/Additional Instructions: Dr. Johnson recommends that you follow with the surgeon or the group of surgeons that did the surgery on your hip and femur. We will not have the type of hardware here that you will need. [facility]. Please realize this is an emergency room and that we are providing you with a medical screening exam and this may not be complete and all inclusive of all the testing and or work up that you may need to determine your ailment or severity of your illness. You have been screened and evaluated and felt safe for discharge. Health conditions do change or evolve sometimes and as such it is important that you follow up with your Primary Doctor to be re checked, 3-5 days is a general good time frame for follow up. You are always welcome to return to the ED for re assessment if your symptoms are worsening or you have new concerns Print Language: Latvian Coding Level of Care Code ED Fruit Loader Machine Operator for Beth Roland
[2024-08-02] MEDS: HYDROcodone-acetaminophen 10-325 mg Tablet 1 TAB PO (12:06)
[2024-08-02] MEDS: HYDROmorphone 0.5 MG/0.5 ML INJ 1 MG IVP (12:49)
[2024-08-02 13:01] LABS: Basophils % 0.2 %; Hematocrit 40.6 % (37-53); Lymphocytes # 1.2 10^3/uL (0.8-4.8); Mean Corpuscular HGB Conc 33.5 g/dL (30-55); Mean Corpuscular Hemoglobin 30.2 pg (27-33); Mean Corpuscular Volume 90.2 fl (82-101); Monocytes # 1.1 10^3/uL (0.2-0.9); Monocytes % 6.7 %; Neutrophils # 14.32 10^3/uL (1.8-7.7); Neutrophils % 85.7 %; Nucleated Red Blood Cells % 0 %; Platelet Count 269 10^3/cmm (157-399); Red Cell Distribution Width 13.1 % (12.1-15.1)
[2024-08-02 13:04] LABS: Bacteria Urine None Seen /hpf; Hyaline Casts Urine 0.81 /lpf; RBC Urine 0-2 /hpf (0-2); Squamous Epithelial Cell Urine 0-5 /hpf (0-5); WBC Urine 0-5 /hpf (0-5)
[2024-08-02 13:10] LABS: Bilirubin Urine Neg (Negative); Blood Urine 2+ (Negative); Glucose Urine UA 4+ (Normal); Ketones Urine 1+ (Negative); Leukocyte Esterase Urine Negative (Negative); Nitrate Urine Negative (Negative); Protein Urine Trace (Negative); Specific Gravity, Urine 1.015 (1.005-1.030); Urine Appearance Clear (CLEAR); Urine Color Yellow (Yellow); Urobilinogen Urine Neg (Negative); pH Urine 6.5 (5-7)
[2024-08-02 13:11] LABS: Influenza A NEGATIVE (Negative); Influenza B NEGATIVE (Negative); Respiratory Syncytial Virus Ce NEGATIVE (Negative); SARS-CoV-2 PCR NEGATIVE (Negative)
[2024-08-02 13:20] LABS: Alanine Aminotransferase 23 U/L (0-41); Albumin Level 3.5 g/dL (3.5-5.2); Alkaline Phosphatase 133 U/L (40-130); Anion Gap 17.1 (5-19); Aspartate Amino Transferase 24 U/L (0-40); Blood Urea Nitrogen 10 mg/dL (8-23); C Reactive Protein 151.1 mg/L (0.0-4.9); Calcium 8.9 mg/dL (8.5-10.5); Carbon Dioxide 24 mmol/L (22-29); Chloride 90 mmol/L (98-107); Globulin 3.3 g/dL (1.3-4.6); Glucose 277 mg/dL (65-115); Osmolality Calculated 273 mOsm/kg (285-295); Potassium 4.1 mmol/L (3.5-5.1); Sodium 127 mmol/L (136-145); Total Protein 6.8 g/dL (6.6-8.7)
--- NOTE | 2024-08-02 13:20 | PC.NURSE ---
this nurse assumed pt care from MALIA Brumfield at 1300.
--- NOTE | 2024-08-02 13:26 | XR_ITS ---
WS: [id number] Exam: XR femur RT min 2V* [id number] Date/Time of Exam: 08/02/2024 1:26 PM Reason For Exam: RT LOWER EXT PAIN Old intertrochanteric fracture of the RIGHT hip is stabilized with a long intramedullary femoral mateo and a femoral neck screw. There is lucent reaction along the proximal end of the intramedullary mateo suggesting loosening. The femoral neck screw has eroded through the femoral head into the acetabulum. At the lower end of the femoral mateo there are 2 transverse anchoring screws both which are fractured. The remaining femur is intact. XR/XR femur RT min 2V* [id number] IMPRESSION: 1. Old intertrochanteric fracture of the RIGHT hip stabilized with internal fix ation. There are changes along the proximal end of the intramedullary mateo sugge sting loosening. The femoral neck screw has eroded through the femoral head int o the acetabulum. There is erosion of the midportion of the acetabulum. 2. 2 transverse anchoring screws in the lower end of the femoral mateo of both fr acture
[2024-08-02 13:27] LABS: Procalcitonin 2.09 ng/mL (0-0.5)
[2024-08-02 13:31] LABS: Lactic Sepsis W/Reflex 2.9 mmol/L (0.5-2.2)
[2024-08-02 13:47] LABS: Reflex Lactate Order REFLEX LACTIC ORDERD
--- NOTE | 2024-08-02 14:19 | CTR_ITS ---
PROCEDURE INFORMATION: Exam: CT Pelvis Without Contrast, Skeleton Exam date and time: 08/02/2024 3:35 PM Age: 73 years old Clinical indication: Pelvic pain; Prior surgery; Surgery date: 6+ months; Surgery type: RT leg; Additional info: Concern for infection TECHNIQUE: Imaging protocol: Computed tomography of the pelvis without contrast. Exam focused on the skeleton. Radiation optimization: All CT scans at this facility use at least one of these dose optimization techniques: automated exposure control; mA and/or kV adjustment per patient size (includes targeted exams where dose is matched to clinical indication); or iterative reconstruction. COMPARISON: 1. PT PET skull to thigh INIT [id number] 04/26/2024 10:43 AM 2. CR XR hip RT 2-3V wo/w pel* [id number] 10/01/2023 1:36 PM RADIATION DOSE METRICS: Total DLP (mGy-cm): 661.5 FINDINGS: Bones/joints: Normal alignment. No acute fracture. Postoperative change from instrumented fixation of right femoral intratrochanteric fracture. The femoral neck screw extends through the femoral head into the femoroacetabular joint. No significant bony bridging across the right intertrochanteric fracture suggesting at least partial nonunion. Grade 1 L5-S1 anterolisthesis status post intact posterior spinal fusion with bilateral pedicle screws and stabilization rods. Soft tissues: Unremarkable. CT/CT pelvis wo con [id number] IMPRESSION: 1. Postoperative change from instrumented fixation of right femoral intratrochanteric fracture. The femoral neck screw extends through the femoral head into the femoroacetabular joint. 2. No significant bony bridging across the right intertrochanteric fracture suggesting at least partial nonunion. 3. No acute osseous abnormality.
--- NOTE | 2024-08-02 14:19 | CTR_ITS ---
PROCEDURE INFORMATION: Exam: CT Lumbar Spine Without Contrast Exam date and time: 08/02/2024 3:35 PM Age: 73 years old Clinical indication: Low back pain; Prior surgery; Surgery date: 6+ months TECHNIQUE: Imaging protocol: Computed tomography of the lumbar spine without contrast. Radiation optimization: All CT scans at this facility use at least one of these dose optimization techniques: automated exposure control; mA and/or kV adjustment per patient size (includes targeted exams where dose is matched to clinical indication); or iterative reconstruction. COMPARISON: PT PET skull to thigh INIT [id number] 04/26/2024 10:43 AM RADIATION DOSE METRICS: Total DLP (mGy-cm): 1082 FINDINGS: Tubes, catheters and devices: Chronic grade 1 L5-S1 spondylolisthesis status post instrumented posterior spinal fusion with interbody disc spacer. Bones/joints: Advanced osseous demineralization. Chronic L1 compression fracture status post vertebroplasty. No acute fracture. Mild degenerative spinal stenosis at L2-L3 and L3-L4 secondary to circumferential disc bulge and bilateral facet and ligamentum flavum hypertrophy. Soft tissues: Unremarkable. Other findings: Multilevel marginal spurring. CT/CT lumbar spine wo con* [id number] IMPRESSION: 1. Advanced osseous demineralization. 2. Chronic grade 1 L5-S1 spondylolisthesis status post instrumented posterior spinal fusion with interbody disc spacer. 3. Chronic L1 compression fracture status post vertebroplasty. 4. No acute fracture. 5. Multilevel lumbar spondylosis.
[2024-08-02 15:22] LABS: Lactic Acid level (Lactate) 2.1 mmol/L (0.5-2.2)
[2024-08-02] MEDS: oxyCODONE 5 mg IR Tab/Cap PO ×2 (17:54→17:55)
[2024-08-02] MEDS: cefepime 2,000 mg SDV 2000 MG IVP (17:55)
--- NOTE | 2024-08-03 02:43 | PC.NURSE ---
Critical Lab report by medical lab specialist 1 of 4 bottles positive for gram positive cocci with clusters. Dr Huntley notified of the critical finding.
== END 2024-08-02 18:03 | disposition home or self-care (01) ==
PROVIDERS: Emergency Provider Emergency Medicine; PCP Nurse Practitioner
DX: M25.551 Pain in right hip (principal); F50.9 Eating disorder, unspecified; Z11.52 Encounter for screening for COVID-19; Z79.4 Long term (current) use of insulin; M79.604 Pain in right leg; E11.9 Type 2 diabetes mellitus without complications; I10 Essential (primary) hypertension
CPT/HCPCS: 12345; 36415; 71045; 72131; 72170; 72192; 73552; 80053; 81001; 83605; 84145; 85025; 86140; 87040; 87077; 87150; 87186; 87205; 87637; 96374; 96375; 99285; J0692; J1171; J9999

== ENCOUNTER 2024-08-14 15:32 | Emergency (ER) | payer MEDICARE, OTHER, SELFPAY ==
[2024-08-14] VITALS (11 sets, daily range): BP systolic 90–150; BP diastolic 56–93; PULSE 82–114; RESP 17–18; TEMP 36.9; O2SAT 93–99
--- NOTE | 2024-08-14 15:47 | ECG_ITS ---
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 Measurements Intervals [place] Rate: 86 P: 28 TN: 185 QRS: -10 QRSD: 92 T: 80 QT: 347 QTc: 415 Interpretive Statements SINUS RHYTHM WITH OCCASIONAL VENTRICULAR PREMATURE COMPLEXES NONSPECIFIC T-WAVE ABNORMALITY No previous ECG available for comparison Electronically Signed On 08-14-2024 19:38:48 CDT by Dalton Vidal M.D. [email or web address]
--- NOTE | 2024-08-14 15:47 | XRR_ITS ---
PROCEDURE INFORMATION: Exam: XR Chest Exam date and time: 08/14/2024 4:02 PM Age: 73 years old Clinical indication: Other: Weakness TECHNIQUE: Imaging protocol: Radiologic exam of the chest. Views: 1 view. COMPARISON: CR XR chest 1V portable [id number] 08/02/2024 1:04 PM FINDINGS: Lungs: Unremarkable. No consolidation. Pleural spaces: Unremarkable. No pleural effusion. No pneumothorax. Heart/Mediastinum: Unremarkable. No cardiomegaly. Bones/joints: Unremarkable. XR/XR chest 1V portable [id number] IMPRESSION: No acute findings.
--- NOTE | 2024-08-14 15:58 | ED_ITS ---
HPI - General Adult 2 General: Chief complaint: General Medical Stated complaint: Sent by Luciano Brumfield Time Seen by Provider: 08/14/24 15:43 History of Present Illness: 73-year-old man with a history of diabet es, CVA with right hemiplegia, GERD and hypertension who presents to the emergency room from long-term with concern for positive blood cultures. He says he is still not feeling very good. Blood cultures were taken on 08/02. This was 12 days ago. He is slightly hypotensive and tachycardic on presentation. He says he feels terrible. No specific complaints. Related Data Home Medications ?Medication ?Instructions ?Recorded ?Confirmed fluticasone propionate 50 1 spray intranasal DAILY 03/1808/14/24 mcg/actuation nasal spray,suspension tizanidine 4 mg tablet 4 mg PO BID PRN Muscle Spast icity 08/02/24 08/14/24 tramadol 50 mg tablet 50 mg PO Q8H PRN Pain 08/14/24 bisacodyl 10 mg rectal suppository 10 mg FL DAILY PRN Constipation 08/14/24 08/14/24 (Dulcolax (bisacodyl)) fluconazole 200 mg tablet 200 mg PO DAILY thrush 08/1408/14/24 insulin glargine 100 unit/mL (3 50 unit SUBCUT BID 08/14/24 mL) subcutaneous pen (Lantus Solostar U-100 Insulin) magnesium hydroxide 400 mg/5 mL 30 ml PO DAILY PRN Con stipation 08/14/24 08/14/24 oral suspension (Milk of Magnesia) sodium phosphates 19 gram-7 118 ml FL DAILY PRN Consti pation 08/14/24 08/14/24 gram/118 mL enema (Fleet Enema) Previous Rx's ?Medication ?Instructions ?Recorded Diabetic Tennis Shoes with 3 Pairs #1 ea 11/30/21 of Inserts flash glucose scanning reader #1 ea 12/30/21 (FreeStyle Oleg 14 Day Point Lay) flash glucose sensor (FreeStyle #2 ea 12/30/21 Oleg 14 Day Sensor kit) pen needle, diabetic 32 gauge x #360 ea 03/31/22/ (BD Ultra-Fine Micro Pen Needle) Custom molded accommodative #1 ea 01/24/23 diabetic shoes diabetic shoes and inserts #1 ea 05/02/24 levothyroxine 200 mcg tablet 200 mcg PO DAILY #30 tabs 06/24/24 lisinopril 10 mg tablet 10 mg PO DAILY #30 tabs 07/16 blood-glucose meter,continuous #1 ea 06/27/24 (Dexcom G7 Aligner Typewriter) blood-glucose sensor (Dexcom G7 #12 ea 06/27/24 Sensor device) insulin lispro 100 unit/mL See Rx Instructions SUBCUT TID #15 06/27/24 subcutaneous pen (Humalog KwikPen mL (U-100) Insulin) levothyroxine 25 mcg tablet 25 mcg PO QDAY #30 tabs polyethylene glycol 3350 17 17 g PO DAILY #510 grams 0 08/02/24 gram/dose oral powder (Miralax) oxycodone 5 mg tablet 5 mg PO Q8H PRN pain #20 tab s 08/03/24 Allergies Allergy/AdvReac Type Severity Reaction Status Date / Time metformin Allergy Unknown Unknown Verified 08/14/24 15:41 amlodipine (From [facility]) AdvReac Severe edema Verified 08/14/24 15:41 Review of Systems 2 Narrative: Constitutional symptoms: Negative except as documented in HPI. Skin symptoms: Negative except as documented in HPI. Eye symptoms: Negative except as documented in HPI. ENMT symptoms: Negative except as documented in HPI. Respiratory symptoms: Negative except as documented in HPI. Cardiovascular symptoms: Negative except as documented in HPI. Gastrointestinal symptoms: Negative except as documented in HPI. Genitourinary symptoms: Negative except as documented in HPI. Musculoskeletal symptoms: Negative except as documented in HPI. Neurologic symptoms: Negative except as documented in HPI. Psychiatric symptoms: Negative except as documented in HPI. Endocrine symptoms: Negative except as documented in HPI. 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 Erectile dysfunction Hematospermia Elevated PSA GERD (gastroesophageal reflux disease) DDD (degenerative disc disease), lumbar Adult onset hypothyroidism Benign essential hypertension with target blood pressure below 140/90 Surgical History S/P ORIF (open reduction internal fixation) fracture July 05 Right femur mateo, plate, screws at [place] History of back surgery 2016 History of cataract surgery Both eyes 2014 Family History Other Diabetes Hypertension Social History Smoking and tobacco/nicotine status: never used tobacco/nicotine Alcohol intake: unknown Substance/Drug Use: never Adopted: No Caregiver/support person: No Lives independently: Yes Household members: spouse Housing: House Marital status: Number of children: 2 service: No Current occupational status: retired Pets and animals: Yes Pets & animals: farm animals Do you think of yourself as: Straight/Heterosexual Current gender identity: Male Physical Exam 2 Narrative: EXAM NARRATIVE: General: Alert, no acute distress. Skin: Warm, dry. Head: Normocephalic, atraumatic. Neck: Supple, trachea midline. Eye: Extraocular movements are intact. Ears, nose, mouth and throat: Tacky oral mucosa Cardiovascular: Regular, tachycardic, normal peripheral perfusion. Respiratory: Lungs are clear to auscultation, respirations are non-labored, breath sounds are equal, Symmetrical chest wall expansion. Gastrointestinal: Soft, Nontender, Non distended Musculoskeletal: Normal ROM, no deformity. Neurological: Alert and oriented, No focal neurological deficit observed. Psychiatric: Cooperative, appropriate mood & affect. Course 2 Vital Signs: Vital signs: Vital Signs Temperature 98.5 F 08/14/24 15:36 Pulse Rate 82 08/14/24 20:30 Respiratory Rate 18 08/14/24 20:00 Blood Pressure 150/86 08/14/24 20:30 Pulse Oximetry 95 08/14/24 20:30 Oxygen Delivery Me thod Room Air 08/14/24 20:30 MDM - General Adult Medical Decision Making Medical decision making: Differential diagnosis for patient presenting with generalized weakness including but not limited to and based on the above HPI, review of systems and physical exam: Sepsis. Dehydration. Renal failure. Electrolyte abnormalities. Anemia. Congestive heart failure. Hypotension. Coronary syndrome. Hepatitis. Cirrhosis. Infections such as pneumonia, urinary tract infection, [place] illness, Cellulitis, Viral infections including influenza and Covid-19. Workup: labwork and lab/exam driven imaging ordered to evaluate, rule in and rule out above pathologies. EKG: Time 1735. Rate 86. Normal sinus rhythm, nonspecific ST changes, PVCs, normal FL & QRS intervals, This was reviewed and interpreted by myself the ER physician at 1740. Lab Review: Laboratory results were reviewed and interpreted by myself the emergency room physician. Persistent leukocytosis with a white count of 15,000. Hemoglobin is 13 and normal. Creatinine is 0.7. I reviewed the patient's medical record. I reviewed the patient's chart: Cultures are growing a strep atelectaiae which I would suspect would be a contaminant but given that the patient appears septic treating as such. At this point I think the source may be the abscess in his iliopsoas. Urine has been clear. Chest x-ray is clear. CT of the neck chest abdomen pelvis is all negative for infection. Reexamination: I spoke with family. He said he had been getting radiation for lung cancer and since that time he has not really been eating anything at all. He only drinks water. He was so weak after discharge when I saw him 2 weeks ago that ended up putting into the long-term where he has been for the last [address] of the neck and soft tissue: Improvement of her pharyngeal tonsillar mass. With mild residual soft tissue thickening. See full radiology report. This was reviewed and interpreted by myself the emergency room physician. I also reviewed the radiology report. CT of the chest with contrast: Coronary artery disease. Degenerative changes of the spine. Benign meningioma. Right upper lobe posterior 15 mm nodule which appears new. This was reviewed and interpreted by myself the emergency room physician. I also reviewed the radiology report. CT of the abdomen pelvis with contrast: 4 cm fluid collection in the right iliopsoas muscle containing a small amount of air overlying the anterior lateral aspect of the humeral head. Maves postsurgical changes however infection not included. Given that the surgery was over a year ago with worsening patient pain and sepsis I feel this is most likely an abscess. See further findings on radiology report this was reviewed and interpreted by myself the emergency room physician. I also reviewed the radiology report. Consultation: I spoke at length with Dr. Martinez who is on-call for orthopedics. He reviewed the films extensively. He feels the hardware is failing. There are some hardware into the joint. Also we do not have a Synthes TFN nail. Or the hardware to remove it. We also do not have IR to sample or drain the fluid collection which he recommends as the first step in the process. Reexamination: Patient continues to have pretty severe pain. His blood pressure has improved with fluids he is now in the 140s. Heart rate is improved as well. He has received broad-spectrum antibiotics. I spoke again with the family and apparently he had the surgery at [facility] for his hip. They were confused about a wrist surgery and had done here. He said this was done about a year ago. I discussed consultation with orthopedics. They are requesting transfer back to [facility] which I agree with. 1 we do not have the hardware here and to we do not have interventional liquid sample this fluid collection. Consultation: I spoke with Adan with orthopedics at [facility]. She reviewed old films at the time his hardware looked normal. She said that at his 3-month follow-up the had decided not to go that she did not need it. He had been doing well at that time. Given the multiple reads of worsening hardware failure he needs orthopedic evaluation she agrees. M probably aspiration of that abscess. But she had I both agree that this patient needs a hospitalist admission for his possible sepsis. Multiple comorbidities. Patient accepted to [facility] by Dr. Rodriguez the hospitalist. Assessment and plan: Sepsis Iliopsoas abscess Hardware failure Hypotension Right hip pain ?Lactate is elevated. White count is elevated. Positive blood cultures. Hypotensive. The only source I am finding at this time is possible abscess in his right iliopsoas muscle. -2.5 L normal saline bolus. Fluid volumes based on ideal body weight. -Broad-spectrum antibiotics were administered. Cefepime and Zyvox -Sepsis quality measures. -Lactic acid with a reflex was ordered. -Blood cultures were ordered. ?Morphine and then Dilaudid for pain. -I discussed the patient with the accepting physician on-call. - Discussed findings and plan with patient. Answered any questions. - All laboratory values were reviewed and interpreted personally by myself, the ER physician - All imaging was reviewed and interpreted personally by myself, the ER physician. - Evaluation and treatment of this problem were appropriate in the emergency setting Critical care -I spent a total of >65 minutes of critical care time managing the patient, independent of any other practitioner. -The time involved in the performance of separately reportable procedures was not counted towards critical care time. Lab Data 08/14/24 15:53 08/14/24 15:53 Radiology Impressions Chest X-Ray 08/14/24 15:47 IMPRESSION: No acute findings. Chest/Abdomen/Pelvis CT 08/14/24 17:44 IMPRESSION: 1. Coronary artery atherosclerotic calcifications. 2. Bridging productive degenerative changes throughout the spine. 3. Midthoracic spine benign meningioma. 4. Right upper lobe posterior 14.6 mm nodule with an adjacent apparent 12.6 mm pulmonary nodule abutting the pleura, new compared to prior IMPRESSION: 1. 3.7 cm fluid collection seen in the right iliopsoas muscle containing a small amount of air overlying the anterolateral aspect of the humeral head, may reflect postsurgical changes, however, infection is not excluded, consider fluid sampling. 2. Cholelithiasis with prominence of the gallbladder, consider correlation with ultrasound as clinically indicated. 3. Prominent in the small bowel without dilation may reflect an enteritis in the appropriate clinical setting. 4. L1 vertebroplasty changes. 5. Bilateral renal cysts, negative for follow-up advised. 6. Moderate to severe constipation. 7. Prostate gland enlarged, please correlate clinically. 8. Right femur orthopedic mateo in place. 9. Mesenteric and bilateral renal artery atherosclerotic calcification. COMMENTS: Consistent with the [employer]'s Incidental Findings Committee white paper (J Am Cathy Radiol 2018): Any incidental renal lesion less than 1 cm or classified as too small to characterize, or any incidental cystic renal lesion characterized as simple-appearing, is likely benign. No follow-up imaging is recommended for these lesions per consensus recommendations based on imaging criteria. Neck CT 08/14/24 18:01 IMPRESSION: 1. Significant improvement of previous left oropharyngeal/tonsillar level mass with mild residual soft thickening compared without clear-cut discrete measurable mass 04/26/2024 PET-CT. 2. Previous left submandibular adenopathy has also significantly decreased in size. 3. Stable mild thickening and medialization of the right vocal cord although this could indicate left vocal cord paralysis. 4. Other chronic and degenerative findings detailed above. Laboratory Results WBC 14.93 10^3/uL (3.29-11.43) H 08/14/24 15:53 RBC 4.34 10^6/uL (3.85-5.65) 08/14/24 15:53 Hgb 13.00 g/dL (11.27-16.99) 08/14/24 15:53 Hct 40.6 % (37-53) 08/14/24 15:53 MCV 93.5 fl (82-101) 08/14/24 15:53 MCH 30.0 pg (27-33) 08/14/24 15:53 MCHC 32.0 g/dL (30-55) 08/14/24 15:53 RDW 13.8 % (12.1-15.1) 08/14/24 15:53 Plt Count 428 10^3/cmm (157-399) H 08/14/24 15:53 MPV 9.5 fL (7.4-10.4) 08/14/24 15:53 Neut % (Auto) 77.9 % 08/14/24 15:53 Lymph % (Auto) 13.2 % 08/14/24 15:53 [place] % (Auto) 7.8 % 08/14/24 15:53 Eos % (Auto) 0.1 % 08/14/24 15:53 Baso % (Auto) 0.1 % 08/14/24 15:53 Neut # (Auto) 11.63 10^3/uL (1.8-7.7) H 08/14/24 15:53 Lymph # (Auto) 2.0 10^3/uL (0.8-4.8) 08/14/24 15:53 [place] # (Auto) 1.2 10^3/uL (0.2-0.9) H 08/14/24 15:53 Eos # (Auto) 0.0 10^3/uL (0.0-0.8) 08/14/24 15:53 Baso # (Auto) 0.0 10^3/uL (0.0-0.1) 08/14/24 15:53 Nucleated RBC % (auto) 0 % 08/14/24 15:53 Nucleated RBCs # 0.0 /100WBC 08/14/24 15:53 Sodium 129 mmol/L (136-145) L 08/14/24 15:53 Potassium 5.0 mmol/L (3.5-5.1) 08/14/24 15:53 Chloride 91 mmol/L (98-107) L 08/14/24 15:53 Carbon Dioxide 25 mmol/L (22-29) 08/14/24 15:53 Anion Gap 18.0 (5-19) 08/14/24 15:53 BUN 28 mg/dL (8-23) H 08/14/24 15:53 Creatinine 0.7 mg/dL (0.7-1.2) 08/14/24 15:53 GFR Calculation Not Reportable 08/14/24 15:53 Glucose 117 mg/dL (65-115) H 08/14/24 15:53 Calculated Osmolality 275 mOsm/kg (285-295) L 08/14/24 15:53 Lactic Acid 4.4 mmol/L (0.5-2.2) H* 08/14/24 15:53 Lactic Acid (Sepsis) 2.6 mmol/L (0.5-2.2) H 08/14/24 19:31 Calcium 9.4 mg/dL (8.5-10.5) 08/14/24 15:53 Total Bilirubin 0.7 mg/dL (0.15-1.2) 08/14/24 15:53 AST 64 U/L (0-40) H 08/14/24 15:53 ALT 39 U/L (0-41) 08/14/24 15:53 Alkaline Phosphatase 462 U/L (40-130) H 08/14/24 15:53 C-Reactive Protein 159.7 mg/L (0.0-4.9) H 08/14/24 15:53 Total Protein 6.4 g/dL (6.6-8.7) L 08/14/24 15:53 Albumin 2.4 g/dL (3.5-5.2) L 08/14/24 15:53 Globulin 4.0 g/dL (1.3-4.6) 08/14/24 15:53 Procalcitonin 0.49 ng/mL (0-0.5) 08/14/24 15:53 Urine Color Yellow (Yellow) 08/14/24 19:05 Urine Appearance Clear (CLEAR) 08/14/24 19:05 Urine pH 6.5 (5-7) 08/14/24 19:05 Ur Specific [place] 1.027 (1.005-1.030) 08/14/24 19:05 Urine Protein Negative (Negative) 08/14/24 19:05 Urine Glucose (UA) 3+ (Normal) H 08/14/24 19:05 Urine Ketones Negative (Negative) 08/14/24 19:05 Urine Blood Negative (Negative) 08/14/24 19:05 Urine Nitrate Negative (Negative) 08/14/24 19:05 Urine Bilirubin Negative (Negative) 08/14/24 19:05 Urine Urobilinogen 1.0 mg/dL (Negative) 08/14/24 19:05 Ur Leukocyte Esterase Negative (Negative) 08/14/24 19:05 Urine RBC 0-2 /hpf (0-2) 08/14/24 19:05 Urine WBC 0-5 /hpf (0-5) 08/14/24 19:05 Ur Squamous Epith Cells 0-5 /hpf (0-5) 08/14/24 19:05 Amorphous Sediment Not Reportable 08/14/24 19:05 Urine Bacteria None seen /hpf (NONE) 08/14/24 19:05 Hyaline Casts 6.17 /lpf 08/14/24 19:05 Influenza A (PCR) Negative (Negative) 08/14/24 17:00 Influenza Type B (PCR) Negative (Negative) 08/14/24 17:00 RSV (PCR) Negative (Negative) 08/14/24 17:00 SARS-CoV-2 (PCR) Negative (Negative) 08/14/24 17:00 All radiology interpretation(s) finalized by discharge Discharge Plan Discharge Patient Disposition: Xfer Short-Term Hosp Clinical Impression: Iliopsoas abscess on right, Failed hardware, Sepsis, Pulmonary nodule, Hip pain Condition: Stable Referrals: Corey Martin, [employer] [Primary Care Provider] - Print Language: Colombian Coding Level of Care Code ED Director Regulatory Affairs for Beth Roland
--- NOTE | 2024-08-14 16:25 | PC.PHAR ---
Pt is now in [facility]
[2024-08-14] MEDS: sodium chloride 0.9% 1,000 ML 999 ML IV ×2 (17:03→17:48)
--- NOTE | 2024-08-14 17:13 | PC.NURSE ---
blood cultures just collected. abts started.
[2024-08-14 17:18] LABS: Basophils % 0.1 %; Eosinophils % 0.1 %; Hematocrit 40.6 % (37-53); Lymphocytes % 13.2 %; Mean Corpuscular Volume 93.5 fl (82-101); Mean Platelet Volume 9.5 fL (7.4-10.4); Monocytes # 1.2 10^3/uL (0.2-0.9); Monocytes % 7.8 %; Neutrophils # 11.63 10^3/uL (1.8-7.7); Neutrophils % 77.9 %; Nucleated Red Blood Cells % 0 %; Platelet Count 428 10^3/cmm (157-399); Red Blood Count 4.34 10^6/uL (3.85-5.65); Red Cell Distribution Width 13.8 % (12.1-15.1); White Blood Count 14.93 10^3/uL (3.29-11.43)
[2024-08-14] MEDS: ondansetron 2 mg/ML SDV 2 mL 4 MG IVP (17:32)
[2024-08-14] MEDS: morphine 4 mg/mL SDV 1 mL IVP (17:33)
[2024-08-14] MEDS: cefepime 2,000 mg SDV 2000 MG IVP (17:38)
[2024-08-14 17:42] LABS: Alanine Aminotransferase 39 U/L (0-41); Albumin Level 2.4 g/dL (3.5-5.2); Alkaline Phosphatase 462 U/L (40-130); Aspartate Amino Transferase 64 U/L (0-40); Blood Urea Nitrogen 28 mg/dL (8-23); C Reactive Protein 159.7 mg/L (0.0-4.9); Calcium 9.4 mg/dL (8.5-10.5); Carbon Dioxide 25 mmol/L (22-29); Chloride 91 mmol/L (98-107); Creatinine Clr Calc Pharmacy 100.7875; Glucose 117 mg/dL (65-115); Lactic Sepsis W/Reflex 4.4 mmol/L (0.5-2.2); Osmolality Calculated 275 mOsm/kg (285-295); Sodium 129 mmol/L (136-145); Total Bilirubin 0.7 mg/dL (0.15-1.2); Total Protein 6.4 g/dL (6.6-8.7)
[2024-08-14] MEDS: linezolid premix 600 MG/300 ML PREMIX 300 MG IV (17:44)
--- NOTE | 2024-08-14 17:44 | CTR_ITS ---
PROCEDURE INFORMATION: Exam: CT Chest With Contrast; Diagnostic Exam date and time: 08/14/2024 6:09 PM Age: 73 years old Clinical indication: Condition or disease; Other: Sepsis; Prior surgery; Surgery date: 6+ months; Surgery type: Hip, spine TECHNIQUE: Imaging protocol: Diagnostic computed tomography of the chest with contrast. Radiation optimization: All CT scans at this facility use at least one of these dose optimization techniques: automated exposure control; mA and/or kV adjustment per patient size (includes targeted exams where dose is matched to clinical indication); or iterative reconstruction. Contrast material: OMNIPAQUE 350; Contrast volume: 70 ml; Contrast route: INTRAVENOUS (IV); COMPARISON: PT PET skull to thigh INIT [id number] 04/26/2024 10:43 AM RADIATION DOSE METRICS: Total DLP (mGy-cm): 842.7 FINDINGS: Lungs: Right upper lobe posterior 14.6 mm nodule with an adjacent apparent 12.6 mm pulmonary nodule abutting the pleura, new compared to prior exam. Pleural spaces: Unremarkable. No pneumothorax. No pleural effusion. Heart: Unremarkable. No cardiomegaly. No pericardial effusion. Coronary arteries: Coronary artery atherosclerotic calcifications. Lymph nodes: Unremarkable. No enlarged lymph nodes. Vasculature: Unremarkable. No aortic aneurysm. Bones/joints: Bridging productive degenerative changes throughout the spine. Midthoracic spine benign meningioma. Soft tissues: Unremarkable. exam.Consider non-emergent PET/CT or tissue sampling.(Reference: Dariel) REFERENCES: Dariel Wheeler et al. Guidelines for Management of Incidental Pulmonary Nodules Detected on CT Images: From the Fleischner Society 2017. Radiology. 2017;284(1):228-243. PROCEDURE INFORMATION: Exam: CT Abdomen And Pelvis With Contrast Exam date and time: 08/14/2024 6:09 PM Age: 73 years old Clinical indication: Condition or disease; Other: Sepsis; Prior surgery; Surgery date: 6+ months; Surgery type: Hip, spine TECHNIQUE: Imaging protocol: Computed tomography of the abdomen and pelvis with contrast. Radiation optimization: All CT scans at this facility use at least one of these dose optimization techniques: automated exposure control; mA and/or kV adjustment per patient size (includes targeted exams where dose is matched to clinical indication); or iterative reconstruction. Contrast material: OMNIPAQUE 350; Contrast volume: 70 ml; Contrast route: INTRAVENOUS (IV); COMPARISON: CT pelvis wo con [id number] 08/02/2024 3:35 PM RADIATION DOSE METRICS: Total DLP (mGy-cm): 842.7 FINDINGS: Liver: Normal. No mass. Gallbladder and biliary ducts: Cholelithiasis with prominence of the gallbladder, consider correlation with ultrasound as clinically indicated. Pancreas: Normal. No ductal dilation. Spleen: Normal. No splenomegaly. Adrenal glands: Normal. No mass. Kidneys and ureters: Bilateral renal cysts, negative for follow-up advised. Stomach and bowel: Moderate to severe constipation. Prominent in the small bowel without dilation may reflect an enteritis. Appendix: No evidence of appendicitis. Intraperitoneal space: Unremarkable. No free air. No significant fluid collection. Vasculature: Mesenteric and bilateral renal artery atherosclerotic calcification. Lymph nodes: Unremarkable. No enlarged lymph nodes. Urinary bladder: Unremarkable as visualized. Reproductive: Prostate gland enlarged, please correlate clinically. Bones/joints: L1 vertebroplasty changes. Right femur orthopedic mateo in place. Soft tissues: 3.7 cm fluid collection seen in the right iliopsoas muscle containing a small amount of air overlying the anterolateral aspect of the humeral head, may reflect postsurgical changes, however, infection is not excluded, consider fluid sampling. CT/CT chest abdpel w/*[id number] IMPRESSION: 1. Coronary artery atherosclerotic calcifications. 2. Bridging productive degenerative changes throughout the spine. 3. Midthoracic spine benign meningioma. 4. Right upper lobe posterior 14.6 mm nodule with an adjacent apparent 12.6 mm pulmonary nodule abutting the pleura, new compared to prior IMPRESSION: 1. 3.7 cm fluid collection seen in the right iliopsoas muscle containing a small amount of air overlying the anterolateral aspect of the humeral head, may reflect postsurgical changes, however, infection is not excluded, consider fluid sampling. 2. Cholelithiasis with prominence of the gallbladder, consider correlation with ultrasound as clinically indicated. 3. Prominent in the small bowel without dilation may reflect an enteritis in the appropriate clinical setting. 4. L1 vertebroplasty changes. 5. Bilateral renal cysts, negative for follow-up advised. 6. Moderate to severe constipation. 7. Prostate gland enlarged, please correlate clinically. 8. Right femur orthopedic mateo in place. 9. Mesenteric and bilateral renal artery atherosclerotic calcification. COMMENTS: Consistent with the [employer] [employer]'s Incidental Findings Committee white paper (J Am Cathy Radiol 2018): Any incidental renal lesion less than 1 cm or classified as too small to characterize, or any incidental cystic renal lesion characterized as simple-appearing, is likely benign. No follow-up imaging is recommended for these lesions per consensus recommendations based on imaging criteria.
[2024-08-14 17:48] LABS: Procalcitonin 0.49 ng/mL (0-0.5)
[2024-08-14 18:00] LABS: Influenza A NEGATIVE (Negative); Influenza B NEGATIVE (Negative); Respiratory Syncytial Virus Ce NEGATIVE (Negative); SARS-CoV-2 PCR NEGATIVE (Negative)
--- NOTE | 2024-08-14 18:01 | CTR_ITS ---
PROCEDURE INFORMATION: Exam: CT Neck With Contrast Exam date and time: 08/14/2024 6:09 PM Age: 73 years old Clinical indication: Condition or disease; Other: Sepsis TECHNIQUE: Imaging protocol: Computed tomography of the neck with contrast. Radiation optimization: All CT scans at this facility use at least one of these dose optimization techniques: automated exposure control; mA and/or kV adjustment per patient size (includes targeted exams where dose is matched to clinical indication); or iterative reconstruction. Contrast material: OMNIPAQUE 350; Contrast volume: 70 ml; Contrast route: INTRAVENOUS (IV); COMPARISON: PT PET skull to thigh INIT [id number] 04/26/2024 10:43 AM RADIATION DOSE METRICS: Total DLP (mGy-cm): 199.7 FINDINGS: Salivary glands: Normal. Glands are normal in size. Pharynx: Previous metabolically active mass as of thickening in the left oropharynx/tonsillar level has significantly improved with residual soft thickening (series 3, image 45). No significant tonsillar enlargement. Larynx: Thickened and mildly medialized right vocal cord (series 3, image 77), unchanged from 04/26/2024. No other measurable abnormality in the aerodigestive are occult. Thyroid: Normal. No enlarged or calcified nodules. Trachea: Visualized trachea is unremarkable. Lungs: Unremarkable as visualized. Esophagus: Mild diffuse thickening of the visualized upper thoracic and cervical esophagus. Lymph nodes: Borderline enlarged prevascular superior mediastinal lymph node up to 1 cm of the thoracic inlet (series 3, image 104). A 1.5 cm left submandibular lymph node has significantly regressed from 2.5 cm on the prior PET-CT. Vasculature: Moderate atherosclerotic calcification of the right greater than left carotid bifurcation with up to 50% stenosis of the right and no significant stenosis on the left. Bones/joints: Moderately advanced multilevel cervical spondylosis including facet arthropathy and endplate and uncovertebral spurring. [id number] foraminal stenosis at C2-C3, right greater than left, mild stenosis C3-C4, C4-C5 and C5-C6. Moderate right foraminal stenosis at C6-C7 . Mild canal stenosis at C5-C7. Soft tissues: Unremarkable. No significant soft tissue swelling. CT/CT neck w con* [id number] IMPRESSION: 1. Significant improvement of previous left oropharyngeal/tonsillar level mass with mild residual soft thickening compared without clear-cut discrete measurable mass 04/26/2024 PET-CT. 2. Previous left submandibular adenopathy has also significantly decreased in size. 3. Stable mild thickening and medialization of the right vocal cord although this could indicate left vocal cord paralysis. 4. Other chronic and degenerative findings detailed above.
[2024-08-14] MEDS: iohexol 350 mg/mL 500 mL Btl (per mL) IV (18:16)
[2024-08-14 18:59] LABS: Reflex Lactate Order REFLEX LACTIC ORDERD
[2024-08-14 19:24] LABS: Bilirubin Urine Negative (Negative); Blood Urine Negative (Negative); Glucose Urine UA 3+ (Normal); Ketones Urine Negative (Negative); Leukocyte Esterase Urine Negative (Negative); Nitrate Urine Negative (Negative); Protein Urine Negative (Negative); Specific Gravity, Urine 1.027 (1.005-1.030); Urine Appearance Clear (CLEAR); Urine Color Yellow (Yellow); pH Urine 6.5 (5-7)
[2024-08-14 19:26] LABS: Bacteria Urine None Seen /hpf; Hyaline Casts Urine 6.17 /lpf; RBC Urine 0-2 /hpf (0-2); Squamous Epithelial Cell Urine 0-5 /hpf (0-5); WBC Urine 0-5 /hpf (0-5)
[2024-08-14 19:54] LABS: Lactic Acid level (Lactate) 2.6 mmol/L (0.5-2.2)
[2024-08-14] MEDS: HYDROmorphone 0.5 MG/0.5 ML INJ IVP (20:00)
[2024-08-14] MEDS: sodium chloride 0.9% 500 ML 999 ML IV (20:00)
--- NOTE | 2024-08-14 20:38 | PC.NURSE ---
Pt has wounds, one to sacrum and one to right hip. Also has bilat lower extremity carias wounds.
--- NOTE | 2024-08-14 21:32 | PC.NURSE ---
Called Maegan ziegelr at #[phone]. Gave pt report to Jade Yen RN at [phone].
--- NOTE | 2024-08-14 22:02 | PC.NURSE ---
called yeison doe, spoke to rocio, informed her of pt transfer to [facility].
[2024-08-15 07:41] LABS: Bacillus cereus group Not Detected (NOT DETECT); Bacillus subtillis group Not Detected (NOT DETECT); Corynebacterium Not Detected (NOT DETECT); Cutibacterium acnes (P.acnes) Not Detected (NOT DETECT); Enterococcus Not Detected (NOT DETECT); Enterococcus faecalis Not Detected (NOT DETECT); Enterococcus faecium Not Detected (NOT DETECT); Lactobacillus species Not Detected (NOT DETECT); Listeria Not Detected (NOT DETECT); Listeria monocytogenes Not Detected (NOT DETECT); Micrococcus Not Detected (NOT DETECT); Pan Candida Not Detected (NOT DETECT); Pan Gram-Negative Not Detected (NOT DETECT); Staphylococcus epidermidis Not Detected (NOT DETECT); Staphylococcus lugdunensis Not Detected (NOT DETECT); Staphylococcus species Not Detected (NOT DETECT); Streptococcus agalactiae Detected (NOT DETECT); Streptococcus anginosus group Not Detected (NOT DETECT); Streptococcus pneumoniae Not Detected (NOT DETECT); Streptococcus pyogenes Not Detected (NOT DETECT); Streptococcus species Detected (NOT DETECT)
== END 2024-08-14 22:52 | disposition short-term general hospital (02) ==
PROVIDERS: Emergency Provider Emergency Medicine; PCP Nurse Practitioner
DX: K68.12 Psoas muscle abscess (principal); T84.199A Other mechanical complication of internal fixation device of unspecified bone of limb, initial encounter; A41.9 Sepsis, unspecified organism; R91.1 Solitary pulmonary nodule; M25.551 Pain in right hip; Z11.52 Encounter for screening for COVID-19; X58.XXXA Exposure to other specified factors, initial encounter
CPT/HCPCS: 36415; 70491; 71045; 71260; 74177; 80053; 81001; 83605; 84145; 85025; 86140; 87040; 87150; 87186; 87205; 87637; 93005; 96361; 96365; 96366; 96375; 99285; J0692; J1171; J2020; J2270; J2405; J7030; J7040

== ENCOUNTER 2024-11-02 11:08 | Emergency (ER) | payer MEDICARE, OTHER, SELFPAY ==
[2024-11-02] VITALS (8 sets, daily range): BP systolic 117–148; BP diastolic 63–90; PULSE 60–100; RESP 14–18; TEMP 36.9; O2SAT 94–98
--- NOTE | 2024-11-02 11:09 | ECG_ITS ---
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 Measurements Intervals [place] Rate: 99 P: 4 NC: 185 QRS: -24 QRSD: 90 T: 67 QT: 318 QTc: 408 Interpretive Statements SINUS RHYTHM BORDERLINE LEFT AXIS DEVIATION [QRS AXIS < -20] MODERATE VOLTAGE CRITERIA FOR LVH, CONSIDER NORMAL VARIANT [MEETS CRITERIA IN ONE OF: R(aVL), S(V1), R(V5), R(V5/V6)+S(V1)] NONSPECIFIC T-WAVE ABNORMALITY Compared to ECG 08/14/2024 17:35:20 Ventricular premature complex(es) no longer present T-wave abnormality still present Electronically Signed On 11-05-2024 10:11:47 CDT by Dalton Vidal M.D. [id number]
--- NOTE | 2024-11-02 11:09 | XRR_ITS ---
PROCEDURE INFORMATION: Exam: XR Chest Exam date and time: 11/02/2024 11:17 AM Age: 74 years old Clinical indication: Pain; Chest pressure; Additional info: Chest pain TECHNIQUE: Imaging protocol: Radiologic exam of the chest. Views: 1 view. COMPARISON: CT chest keelypel w/*[id number] 08/14/2024 6:09 PM FINDINGS: Lungs: Lungs are clear. Pleural spaces: There is no pleural effusion or pneumothorax. Heart/Mediastinum: Cardiomediastinal contours are unremarkable. Bones/joints: Bones are unremarkable. XR/XR chest 1V portable [id number] IMPRESSION: No acute findings.
--- OUTSIDE RECORDS SUMMARY | 2024-11-02 11:14 | XMS_ITS | Clinical Summary ---
Author Organization [facility] Address [address] [place] [address] Care Team Providers Care Filler Operator Name Role Phone Unavailable Primary Care Provider Unavailabl e Allergies No known active allergies Medications glimepiride (AMARYL) 4 mg Oral tablet Take 4 mg by mouth daily with breakfast. Active insulin glargine (LANTUS SOLOSTAR) 100 unit/mL subCUT Inject by subcutaneous injection daily. Active tamsulosin (FLOMAX) 0.4 mg Oral capsule Take 0.4 mg by mouth daily. 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 Gender Identity Not on file Sexual Orientation Not on file Last Filed Vital Signs Vital Sign Reading Time Taken Comments Blood Pressure 173/102 01/17/2014 9:37 AM CDT Pulse 56 01/17/2014 9:37 AM CDT Temperature - - Respiratory Rate - - Oxygen Saturation - - Inhaled Oxygen Concentration - - Weight 127 kg (280 lb) 01/17/2014 9:37 AM CDT Height 198.1 cm (6' 6 ) 01/17/2014 9:37 AM CDT Body Mass Index 32.36 01/17/2014 9:37 AM CDT Plan of Treatment Health Maintenance Due Date Last Done Comments DTAP/TDAP/TD VACCINES (1 - Tdap) 10/31/1967 PNEUMOCOCCAL VACCINE 50+ YEARS (1 of 1 - PCV) 10/30/18 99 ZOSTER VACCINE (1 of 2) 1998 RSV VACCINE (60+ or ) (1 - 1-dose 75+ series) 10/31/2023 INFLUENZA VACCINE (#1) 2024 Insurance MEDICARE PART A AND B [employer] [facility]
--- NOTE | 2024-11-02 11:32 | ED_ITS ---
HPI - Chest Pain 2 General: Chief Complaint: Chest Pain Stated Complaint: chest pain Time Seen by Provider: 11/02/24 11:09 History of Present Illness: 74-year-old male [facility] with complaint of chest pain. EMS reported that on arrival the heart rate was 212. He was converted with adenosine arrival here his rate is controlled. He has had problems with SVT in the past as well. He was given sublingual nitro on arrival he still complaining of some mild chest discomfort with pain radiating to his arms some mild shortness of breath he has some mild cognitive dysfunction as well as his difficulty getting to focus on particular signs or symptoms. Associated symptoms: Deny abdominal pain, dyspnea or fever(s) Related Data Home Medications ?Medication ?Instructions ?Recorded ?Confirmed bisacodyl 10 mg rectal suppository 10 mg MD DAILY PRN Constipation 08/14/24 11/02/24 (Dulcolax (bisacodyl)) insulin glargine 100 unit/mL (3 25 unit SUBCUT DAILY 0 08/14/24 11/02/24 mL) subcutaneous pen (Lantus Solostar U-100 Insulin) magnesium hydroxide 400 mg/5 mL 30 ml PO DAILY PRN Con stipation 08/14/24 11/02/24 oral suspension (Milk of Magnesia) sodium phosphates 19 gram-7 118 ml MD DAILY PRN Consti pation 08/14/24 11/02/24 gram/118 mL enema (Fleet Enema) docusate sodium 100 mg capsule 100 mg PO BID PRN Const ipation 11/02/24 11/02/24 (Colace) gabapentin 300 mg capsule 300 mg PO TID 11/02/2411/02 insulin lispro 100 unit/mL 8 unit SUBCUT TID 11/02/24 11/02/24 subcutaneous pen (Humalog KwikPen (U-100) Insulin) oxycodone 5 mg tablet 5 mg PO Q8H PRN Pain, Modera te 11/02/24 11/02/24 polyethylene glycol 3350 17 17 g PO DAILY Constipation 11/02/24 11/02/24 gram/dose oral powder (Miralax) tamsulosin 0.4 mg capsule 0.4 mg PO BEDTIME 11/02/24 0 11/02/24 Previous Rx's ?Medication ?Instructions ?Recorded Diabetic Tennis Shoes with 3 Pairs #1 ea 11/30/21 of Inserts flash glucose scanning reader #1 ea 12/30/21 (FreeStyle Oleg 14 Day Adams) flash glucose sensor (FreeStyle #2 ea 12/30/21 Oleg 14 Day Sensor kit) pen needle, diabetic 32 gauge x #360 ea 03/31/22 1/ (BD Ultra-Fine Micro Pen Needle) Custom molded accommodative #1 ea 01/24/23 diabetic shoes diabetic shoes and inserts #1 ea 05/02/24 levothyroxine 200 mcg tablet 200 mcg PO DAILY #30 tabs 06/24/24 lisinopril 10 mg tablet 10 mg PO DAILY #30 tabs 07/16 blood-glucose sensor (Dexcom G7 #12 ea 06/27/24 Sensor device) blood-glucose,instrument engineer,cont #1 ea 06/27/24 (Dexcom G7 Surgical Consultant) levothyroxine 25 mcg tablet 25 mcg PO QDAY #30 tabs metoprolol succinate 25 mg 12.5 mg (1/2 x 25 mg) PO DA TRISTIN #15 11/02/24 tablet,extended release 24 hr tabs Allergies Allergy/AdvReac Type Severity Reaction Status Date / Time metformin Allergy Unknown Unknown Verified 08/14/24 15:41 amlodipine (From Norvasc) AdvReac Severe edema Verified 08/14/24 15:41 Review of Systems 2 Const: Denies: fever(s) or chills Card: Denies: chest pain Resp: Denies: dyspnea GI: Denies: abdominal pain : Denies: dysuria, urinary frequency or urinary urgency Musc: Denies: neck pain or back pain Skin/Breast: Denies: rash 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 Erectile dysfunction Hematospermia Elevated PSA GERD (gastroesophageal reflux disease) DDD (degenerative disc disease), lumbar Adult onset hypothyroidism Benign essential hypertension with target blood pressure below 140/90 Surgical History S/P ORIF (open reduction internal fixation) fracture July 05 Right femur mateo, plate, screws at [place] History of back surgery 2016 History of cataract surgery Both eyes 2015 Family History Other Diabetes Hypertension Social History Smoking and tobacco/nicotine status: never used tobacco/nicotine Alcohol intake: unknown Substance/Drug Use: never Adopted: No Caregiver/support person: No Lives independently: Yes Household members: spouse Housing: House Marital status: Number of children: 2 service: No Current occupational status: retired Pets and animals: Yes Pets & animals: farm animals Do you think of yourself as: Straight/Heterosexual Current gender identity: Male Physical Exam 2 Const: GENERAL APPEARANCE: cooperative ORIENTATION/CONSCIOUSNESS: Yes awake HENMT: COMMON NORMALS: normocephalic, atraumatic and hearing grossly normal bilaterally HEAD & SCALP: normocephalic and atraumatic Resp: COMMON NORMALS: normal respiratory effort, No retractions, No use of accessory muscles and clear to auscultation bilaterally AUSCULTATION: clear to auscultation bilaterally Cardio: COMMON NORMALS: regular rate, regular rhythm and No murmurs present (Cardio) RATE: regular rate RHYTHM: regular rhythm GI: COMMON NORMALS: Soft to palpation and No hepatosplenomegaly present A USCULTATION: Yes normoactive bowel sounds PALPATION: Yes Soft to palpation, No Tenderness to palpation present (GI), No Guarding due to palpation present (GI) and Yes No hepatosplenomegaly present Extremity: COMMON NORMALS: normal to inspection, capillary refill normal, no clubbing, cyanosis or edema, no calf tenderness and no pedal edema Skin: COMMON NORMALS: no rashes or lesions noted GENERAL SKIN EXAM: no rashes or lesions noted Course 2 Vital Signs: Vital signs: Vital Signs Temperature 98.4 F 11/02/24 11:12 Pulse Rate 60 11/02/24 14:10 Respiratory Rate 18 11/02/24 14:10 Blood Pressure 117/73 11/02/24 14:10 Pulse Oximetry 97 11/02/24 14:10 Oxygen Delivery Me thod Room Air 11/02/24 12:26 MDM - Chest Pain Medical Decision Making Patient had episode of SVT. Initially EMS did not believe this rhythm strip he contacted him and sent me pictures of him appears to be SVT the post adenosine picture shows a sinus rhythm is remaining in sinus rhythm and we gave him oral metoprolol. He feels fine he had a very slight bump in his troponin but he is not having any further discomfort. There is no acute changes in EKG suspect it is from demand from the time that he was in SVT. Several years ago he had a similar episode he has not had one since. He would like to go home. Will start metoprolol succinate 12.5 mg daily. Will set him up for a 72-hour Holter monitor and follow-up with cardiology return if he has further problems. I did advise him that he should follow-up with cardiology before he proceeds with a planned elective hip surgery. Medical Records I reviewed the patient's medical records. Lab Data I reviewed the patient's lab results. 11/02/24 11:27 11/02/24 11:27 Radiology Impressions Chest X-Ray 11/02/24 11:09 IMPRESSION: No acute findings. Laboratory Results WBC 9.12 10^3/uL (3.29-11.43) 11/02/24 11:27 RBC 4.21 10^6/uL (3.85-5.65) 11/02/24 11:27 Hgb 11.90 g/dL (11.27-16.99) 11/02/24 11:27 Hct 36.7 % (37-53) L 11/02/24 11:27 MCV 87.2 fl (82-101) 11/02/24 11:27 MCH 28.3 pg (27-33) 11/02/24 11:27 MCHC 32.4 g/dL (30-55) 11/02/24 11:27 RDW 13.7 % (12.1-15.1) 11/02/24 11:27 Plt Count 326 10^3/cmm (157-399) 11/02/24 11:27 MPV 8.9 fL (7.4-10.4) 11/02/24 11:27 Neut % (Auto) 65.0 % 11/02/24 11:27 Lymph % (Auto) 26.0 % 11/02/24 11:27 [place] % (Auto) 7.1 % 11/02/24 11:27 Eos % (Auto) 1.3 % 11/02/24 11:27 Baso % (Auto) 0.4 % 11/02/24 11:27 Neut # (Auto) 5.92 10^3/uL (1.8-7.7) 11/02/24 11:27 Lymph # (Auto) 2.4 10^3/uL (0.8-4.8) 11/02/24 11:27 [place] # (Auto) 0.7 10^3/uL (0.2-0.9) 11/02/24 11:27 Eos # (Auto) 0.1 10^3/uL (0.0-0.8) 11/02/24 11:27 Baso # (Auto) 0.0 10^3/uL (0.0-0.1) 11/02/24 11:27 Nucleated RBC % (auto) 0 % 11/02/24 11:27 Nucleated RBCs # 0.0 /100WBC 11/02/24 11:27 Sodium 134 mmol/L (136-145) L 11/02/24 11:27 Potassium 4.1 mmol/L (3.5-5.1) 11/02/24 11:27 Chloride 97 mmol/L (98-107) L 11/02/24 11:27 Carbon Dioxide 22 mmol/L (22-29) 11/02/24 11:27 Anion Gap 19.1 (5-19) H 11/02/24 11:27 BUN 13 mg/dL (8-23) 11/02/24 11:27 Creatinine 0.6 mg/dL (0.7-1.2) L 11/02/24 11:27 GFR Calculation Not Reportable 11/02/24 11:27 Glucose 272 mg/dL (65-115) H 11/02/24 11:27 Calculated Osmolality 288 mOsm/kg (285-295) 11/02/24 11:27 Calcium 8.6 mg/dL (8.5-10.5) 11/02/24 11:27 Total Bilirubin 0.4 mg/dL (0.15-1.2) 11/02/24 11:27 AST 24 U/L (0-40) 11/02/24 11:27 ALT 14 U/L (0-41) 11/02/24 11:27 Alkaline Phosphatase 165 U/L (40-130) H 11/02/24 11:27 Troponin T Baseline 39 ng/L (0-15) H 11/02/24 11:27 Troponin T 120 Minute 45.78 ng/L (0-15) H 11/02/24 13:06 Delta Troponin T 6.78 ABS# (0-10) 11/02/24 13:06 Total Protein 6.3 g/dL (6.6-8.7) L 11/02/24 11:27 Albumin 3.5 g/dL (3.5-5.2) 11/02/24 11:27 Globulin 2.8 g/dL (1.3-4.6) 11/02/24 11:27 All radiology interpretation(s) finalized by discharge Discharge Plan Discharge Patient Disposition: Home Clinical Impression: SVT (supraventricular tachycardia) Condition: Stable Prescriptions: New metoprolol succinate 25 mg tablet extended release 24 hr 12.5 mg PO DAILY Qty: 15 0RF No Action (DME) Diabetic Tennis Shoes with 3 Pairs of Inserts See Rx Instructions .Route .MEDSUPPLY Qty: 1 0RF Rx Instructions: As directed by [employer] ([facility]) pen needle, diabetic [BD Ultra-Fine Micro Pen Needle] 32 gauge x 1/4 needle See Rx Instructions .ROUTE .MEDSUPPLY Qty: 360 3RF Rx Instructions: As directed (DME) diabetic shoes and inserts See Rx Instructions .Route .MEDSUPPLY Qty: 1 0RF Rx Instructions: As directed lisinopril 10 mg tablet 10 mg PO DAILY Qty: 30 2RF levothyroxine 200 mcg tablet 200 mcg PO DAILY Qty: 30 5RF Rx Instructions: along with 25mcg ds=409kqf total (DME) FreeStyle Oleg 14 Day Adams Misc See Rx Instructions .ROUTE .MEDSUPPLY Qty: 1 0RF Rx Instructions: As directed ([facility]) FreeStyle Oleg 14 Day Sensor Kit See Rx Instructions .ROUTE .MEDSUPPLY Qty: 2 3RF Rx Instructions: As directed ([facility]) Custom molded accommodative diabetic shoes See Rx Instructions .Route .MEDSUPPLY Qty: 1 0RF Rx Instructions: As directed ([facility]) Dexcom G7 Sensor Device See Rx Instructions .ROUTE .MEDSUPPLY Qty: 12 3RF Rx Instructions: change every 10 days (DME) Dexcom G7 Surgical Consultant Misc See Rx Instructions .Route Qty: 1 0RF Rx Instructions: As directed levothyroxine 25 mcg tablet 25 mcg PO QDAY Qty: 30 2RF Rx Instructions: along with 200mcg cf=[id number] total magnesium hydroxide [Milk of Magnesia] 400 mg/5 mL Suspension 30 ml PO DAILY PRN (Reason: Constipation) bisacodyl [Dulcolax (bisacodyl)] 10 mg Suppository 10 mg MD DAILY PRN (Reason: Constipation) Fleet Enema 19-7 gram/118 mL Enema 118 ml MD DAILY PRN (Reason: Constipation) insulin glargine [Lantus Solostar U-100 Insulin] 100 unit/mL (3 mL) insulin pen 25 unit SUBCUT DAILY tamsulosin 0.4 mg capsule 0.4 mg PO BEDTIME docusate sodium [Colace] 100 mg Capsule 100 mg PO BID PRN (Reason: Constipation) gabapentin 300 mg capsule 300 mg PO TID polyethylene glycol 3350 [Miralax] 17 gram/dose powder 17 g PO DAILY oxycodone 5 mg tablet 5 mg PO Q8H PRN (Reason: Pain, Moderate) insulin lispro [Humalog KwikPen Insulin] 100 unit/mL insulin pen 8 unit SUBCUT TID Discharge Orders: Discharge ED (Routine); Ordered 11/02/24 Ordered By: David Land Referrals: Corey Martin, MOISTURE METER READER-C [Primary Care Provider, Family Practice] Discharge Diet: Usual diet Discharge Activity: Resume usual activity Patient Instructions: Opioid Safety, Pain Management, Patient Portal & Charis Instructions Activity Restrictions/Additional Instructions: Thank you for choosing [facility] for your healthcare needs today. It is very important that you follow up as instructed or that you return to the Emergency Department should you have concerns or if your condition changes or worsens in any way. You are seen in the emergency room after an episode of SVT. EMS crew given you medication to convert it you had no further episodes while you are in the emergency room you were given metoprolol to help control your heart rate and blood pressure. Recommend you start on extended release metoprolol half a tablet once a day you are given a prescription for this. Case management make arrangements for you to follow-up with cardiology as well as a 72-hour Holter monitor. Print Language: Maltese Coding Level of Care Code ED Aircraft Sales Representative for Beth Roland
[2024-11-02 11:33] LABS: Hematocrit 36.7 % (37-53); Hemoglobin 11.90 g/dL (11.27-16.99); Mean Corpuscular HGB Conc 32.4 g/dL (30-55); Mean Corpuscular Hemoglobin 28.3 pg (27-33); Mean Corpuscular Volume 87.2 fl (82-101); Nucleated Red Blood Cells % 0 %; Platelet Count 326 10^3/cmm (157-399); Red Blood Count 4.21 10^6/uL (3.85-5.65); White Blood Count 9.12 10^3/uL (3.29-11.43)
--- NOTE | 2024-11-02 11:54 | PC.PHAR ---
Pt is from [facility]
[2024-11-02 11:55] LABS: Alanine Aminotransferase 14 U/L (0-41); Albumin Level 3.5 g/dL (3.5-5.2); Alkaline Phosphatase 165 U/L (40-130); Anion Gap 19.1 (5-19); Aspartate Amino Transferase 24 U/L (0-40); Blood Urea Nitrogen 13 mg/dL (8-23); Calcium 8.6 mg/dL (8.5-10.5); Carbon Dioxide 22 mmol/L (22-29); Chloride 97 mmol/L (98-107); Globulin 2.8 g/dL (1.3-4.6); Glucose 272 mg/dL (65-115); Osmolality Calculated 288 mOsm/kg (285-295); Potassium 4.1 mmol/L (3.5-5.1); Sodium 134 mmol/L (136-145); Total Protein 6.3 g/dL (6.6-8.7)
[2024-11-02 11:56] LABS: Troponin(5th) Baseline 39 ng/L (0-15)
--- NOTE | 2024-11-02 13:03 | PC.NURSE ---
patient refusing to keep monitor leads on; nurse attempted to re-orient x2 times
--- NOTE | 2024-11-02 13:09 | ECG_ITS ---
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 Measurements Intervals [place] Rate: 59 P: 18 CT: 197 QRS: 2 QRSD: 87 T: 61 QT: 401 QTc: 398 Interpretive Statements SINUS BRADYCARDIA Compared to ECG 11/02/2024 11:11:11 Sinus rhythm no longer present T-wave abnormality no longer present Electronically Signed On 11-06-2024 00:34:12 CDT by Dalton Vidal M.D. [id number]
[2024-11-02 13:52] LABS: Troponin 5 2HR 45.78 ng/L (0-15); Troponin 5 2HR Delta 6.78 ABS# (0-10)
--- NOTE | 2024-11-02 14:41 | PC.NURSE ---
gave patient sandwich and cup of water per request
--- NOTE | 2024-11-04 07:39 | DCPLANNER ---
messaged heart care for er f/u
== END 2024-11-02 16:03 | disposition home or self-care (01) ==
PROVIDERS: Emergency Provider Family Medicine; PCP Nurse Practitioner
DX: I47.10 Supraventricular tachycardia, unspecified (principal); Z79.4 Long term (current) use of insulin; I10 Essential (primary) hypertension
CPT/HCPCS: 36415; 71045; 80053; 84484; 85025; 93005; 99285; J9999

== ENCOUNTER → 2024-11-11 10:58 | Outpatient (BNVA) | payer MEDICARE, OTHER, SELFPAY | PROVIDERS: PCP Nurse Practitioner; Visit Provider Internal Medicine Cardiovascular Disease | DX: I47.10 Supraventricular tachycardia, unspecified (principal); R00.1 Bradycardia, unspecified; I49.3 Ventricular premature depolarization; I49.1 Atrial premature depolarization | CPT/HCPCS: 93242 ==

== ENCOUNTER → 2024-11-11 12:55 | Outpatient (BNVA) | payer MEDICARE, OTHER, SELFPAY | PROVIDERS: PCP Nurse Practitioner; Visit Provider Nurse Practitioner Family | DX: I47.10 Supraventricular tachycardia, unspecified (principal); I10 Essential (primary) hypertension; C09.9 Malignant neoplasm of tonsil, unspecified; E11.65 Type 2 diabetes mellitus with hyperglycemia; Z79.4 Long term (current) use of insulin; E03.9 Hypothyroidism, unspecified; E78.5 Hyperlipidemia, unspecified; F41.9 Anxiety disorder, unspecified; I69.951 Hemiplegia and hemiparesis following unspecified cerebrovascular disease affecting right dominant side | CPT/HCPCS: 99214 ==

== ENCOUNTER 2024-11-13 07:19 | Outpatient (CLI) | payer MEDICARE, OTHER, SELFPAY ==
--- NOTE | 2024-11-13 07:45 | USCV_ITS ---
Miguel Beauchamp Age: 74 Gender: M : 1950 Exam Date: 11/13/2024 07:40 Ordering Phys: Amy Desir Technologist: JAYA Exam Location: [facility] Indication: Frequent PVC's, SVT BP: 138 / 74 HR: 91 Rhythm: Sinus Technical Quality: Fair MEASUREMENTS (Male / Female) Normal Values 2D ECHO LV Diastolic Diameter PLAX 4.1 cm 4.2 - 5.9 / 3.9 - 5.3 cm IVS Diastolic Thickness 1.6 cm 0.6 - 1.0 / 0.6 - 0.9 cm IVS Systolic Thickness 1.7 cm LVPW Diastolic Thickness 1.6 cm 0.6 - 1.0 / 0.6 - 0.9 cm LVPW Systolic Thickness 1.9 cm LVOT Diameter 2.0 cm LV Ejection Fraction 2D Teich 56.4 % LV Ejection Fraction MOD 4C 62.0 % LV Ejection Fraction MOD 2C 45.1 % LV Ejection Fraction 2C AL 49.5 % LA Diameter 3.3 cm RA Systolic Volume 4C AL 40.8 ml RA Systolic Volume 4C MOD 39.6 ml LA Sys Volume AL 47.6 cm cubed LA Sys Volume Index AL 21.5 cm cubed/m squared Aorta at Sinotubular Diameter 3.3 cm M-MODE LA Ao Ratio MM 1.0 AV Cusp Separation MM 1.6 cm DOPPLER AV Peak Velocity 157.0 cm/s LVOT Peak Velocity 97.0 cm/s AV Area Cont Eq vti 2.6 cm squared AV Area Cont Eq pk 2.0 cm squared MV Peak Velocity 102.0 cm/s MV Area PHT 7.7 cm squared Mitral E to A Ratio 0.6 TV Peak Velocity 145.0 cm/s TR Peak Velocity 183.0 cm/s TR Peak Gradient 13.4 mmHg TV Peak E Velocity 63.0 cm/s PV Peak Velocity 79.0 cm/s FINDINGS Left Ventricle Normal left ventricular size and systolic function, EF 56%. Mild concentric left ventricular hypertrophy (wall thickness 1.1 cm). Stage 1 left ventricular diastolic dysfunction-normal for age. Right Ventricle The right ventricle is normal in size and function. Right Atrium The right atrium is normal in size. Left Atrium The left atrium is normal in size. Mitral Valve Structurally normal mitral valve. No mitral valve stenosis. There is no mitral regurgitation. Aortic Valve Aortic valve not well-visualized. No stenosis or regurgitation by Doppler evaluation. Tricuspid Valve Structurally normal tricuspid valve without significant stenosis or regurgitation. Pulmonary artery systolic pressure is normal. Pulmonic Valve Structurally normal pulmonic valve without significant stenosis. There is no pulmonic regurgitation. Pericardium Normal pericardium without effusion. Aorta Normal aortic root and ascending aorta dimension. IVC The inferior vena cava appears normal. CONCLUSIONS 1. Normal left ventricular and right ventricular size and systolic function 2. No significant valvular abnormalities. Cayetano Haque (Electronically Signed) Final Date: 15 November 2024 14:33 S
== END 2024-11-13 07:20 | disposition home or self-care (01) ==
LOC: RAD 07:20
PROVIDERS: PCP Nurse Practitioner; Visit Provider Nurse Practitioner Family
DX: I10 Essential (primary) hypertension (principal); F41.9 Anxiety disorder, unspecified; I47.10 Supraventricular tachycardia, unspecified; R93.1 Abnormal findings on diagnostic imaging of heart and coronary circulation
CPT/HCPCS: 93306

== ENCOUNTER 2024-12-06 13:14 | Outpatient (CLI) | payer MEDICARE, OTHER, SELFPAY ==
--- NOTE | 2024-12-06 09:50 | PETR_ITS ---
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 Then, PET images were obtained. Attenuation corrected images were constructed using the CT scan. Fused images of PET and CT were reviewed. The standardized uptake values (SUV) reported below are maximum values within a region of interest, expressed in gm/ml. Exam includes orbital meatal line to mid-thigh. SUV normalization method: BodyWeight Radiopharmaceutical: 11.08 mCi F-18 FDG (Fluorodeoxyglucose), IV. Time of imaging post radiopharmaceutical administration: 52 minutes Injection site: right wrist COMPARISON: PT PET skull to thigh INIT [id number] 04/26/2024 10:43 AM FINDINGS: Limitations: Prominent uptake consistent with suboptimal preparation. Brain: Visualized brain has normal physiologic uptake. Pharynx: Resolution of previously noted FDG uptake within the left pharyngeal tonsils. There is no discrete residual mass. Larynx: No abnormal uptake. Lungs, pleura and trachea: No abnormal uptake. Punctate calcified granuloma in the left upper lobe. Heart: Normal physiologic uptake. Mediastinal space: No abnormal uptake. Liver: No abnormal uptake. Gallbladder and biliary ducts: No abnormal uptake. Layering sludge/cholelithiasis. Pancreas: No abnormal uptake. Spleen: No abnormal uptake. The spleen demonstrates punctate calcifications, consistent with remote granulomatous organism exposure. Adrenal glands: No abnormal uptake. Kidneys and ureters: Normal physiologic uptake. Stomach and bowel: No abnormal uptake. Vasculature: No abnormal uptake. Lymph nodes: Resolution of previously noted abnormal increased FDG uptake within a left level 2 lymph node, now imperceptible without significant uptake. No abnormal FDG mao uptake within the head/neck, chest, abdomen or pelvis. Calcified hilar and mediastinal calcifications, likely sequela of prior granulomatous organism exposure. Skeleton: Interval removal of previously noted right femoral intramedullary nail and proximal interlocking screw. A proximal femoral cerclage wire remains. There is a chronic complex fracture deformity of the right proximal femur, with extensive osteolysis and destruction of the femur. A normal femoral head is not visualized. There is prominent associated heterotopic ossification. There is fluid and gas within the joint space, with associated inflammatory changes, maximum SUV 6.9. Right-sided rib fracture deformities, no longer FDG avid. Soft tissues: Mild diffuse chest/lower neck increased intramuscular uptake and scattered areas of uptake within the hands and forearms, likely artifactual. No suspicious area of increased uptake. See above for right hip findings. METRICS: Mediastinal blood pool: Mean SUV of 1.6 Liver uptake: Mean SUV of 1.8 PET/PET skull to thigh SUBS [id number] IMPRESSION: 1. Complete resolution of previously noted abnormal FDG uptake within the left pharyngeal/tonsillar region. No visualized soft tissue lesion. No functional or anatomic evidence of residual disease. 2. Complete resolution of previously noted left level 2 lymph node FDG avidity. No FDG avid lymphadenopathy suggest metastatic disease in the current exam. 3. Interval removal of previously noted right femoral intramedullary nail and proximal interlocking screw. A proximal femoral cerclage wire remains. There is a chronic fracture as well as chronic complex osteolysis and osseous erosion of the right femur. Associated increased FDG uptake is thought to be inflammatory. 4. Chronic right-sided rib fracture deformities, no longer FDG avid.
== END 2024-12-06 13:15 | disposition home or self-care (01) ==
LOC: RAD 13:15
PROVIDERS: PCP Nurse Practitioner; Visit Provider Specialist
DX: C09.8 Malignant neoplasm of overlapping sites of tonsil (principal); Z98.890 Other specified postprocedural states; M95.4 Acquired deformity of chest and rib; J84.10 Pulmonary fibrosis, unspecified; D73.89 Other diseases of spleen
CPT/HCPCS: 78815; A9552

== ENCOUNTER 2025-01-27 15:03 | Outpatient (CLI) | payer MEDICARE, OTHER, SELFPAY ==
--- NOTE | 2025-01-27 15:09 | XR_ITS ---
WS: [id number] Left foot, 3 views, 01/27/2025 Clinical Data: E11.621 - Type 2 diabetes mellitus with foot ulcer Comparison: None. Findings: No fractures or dislocations are seen. No bone destruction or erosion is noted. There is flexion deformity of the toes of the left foot. There is a bunion of the head of the left first metatarsal. XR/XR foot LT min 3V* [id number] Impression: 1. Negative for bone destruction or erosion. 2. Bunion at head of left first metatarsal.
--- NOTE | 2025-01-27 15:09 | XR_ITS ---
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 There may be bone destruction of the distal phalanx of the right first toe. There is flexion deformity of the toes of the foot. The joint spaces are preserved. There are no fractures or dislocations. XR/XR foot RT min 3V* [id number] Impression: 1. Possible soft tissue air in the distal phalanges of the right first, second and possibly third toes which may be from cellulitis. 2. There may be bone destruction of the distal phalanx of the right first toe w hich could indicate osteomyelitis.
== END 2025-01-27 15:04 | disposition home or self-care (01) ==
LOC: RAD 15:06
PROVIDERS: PCP Nurse Practitioner; Visit Provider Thoracic Surgery (Cardiothoracic Vascular Surgery)
DX: E11.52 Type 2 diabetes mellitus with diabetic peripheral angiopathy with gangrene (principal); E11.621 Type 2 diabetes mellitus with foot ulcer; L97.512 Non-pressure chronic ulcer of other part of right foot with fat layer exposed; M21.612 Bunion of left foot; M21.242 Flexion deformity, left finger joints; M21.241 Flexion deformity, right finger joints
CPT/HCPCS: 11042; 73630; 99203

== ENCOUNTER → 2025-02-03 12:59 | Outpatient (BNVA) | payer MEDICARE, OTHER, SELFPAY | PROVIDERS: PCP Nurse Practitioner; Visit Provider Thoracic Surgery (Cardiothoracic Vascular Surgery) | DX: E11.52 Type 2 diabetes mellitus with diabetic peripheral angiopathy with gangrene (principal); E11.621 Type 2 diabetes mellitus with foot ulcer; L97.516 Non-pressure chronic ulcer of other part of right foot with bone involvement without evidence of necrosis; L97.511 Non-pressure chronic ulcer of other part of right foot limited to breakdown of skin; L97.521 Non-pressure chronic ulcer of other part of left foot limited to breakdown of skin | CPT/HCPCS: 97597 ==

== ENCOUNTER → 2025-02-24 12:48 | Outpatient (BNVA) | payer MEDICARE, OTHER, SELFPAY | PROVIDERS: PCP Nurse Practitioner; Visit Provider Thoracic Surgery (Cardiothoracic Vascular Surgery) | DX: E11.52 Type 2 diabetes mellitus with diabetic peripheral angiopathy with gangrene (principal); E11.621 Type 2 diabetes mellitus with foot ulcer; L97.511 Non-pressure chronic ulcer of other part of right foot limited to breakdown of skin; L97.521 Non-pressure chronic ulcer of other part of left foot limited to breakdown of skin | CPT/HCPCS: 97597 ==

== ENCOUNTER → 2025-03-05 13:57 | Outpatient (BNVA) | payer MEDICARE, OTHER, SELFPAY | PROVIDERS: PCP Nurse Practitioner; Visit Provider Thoracic Surgery (Cardiothoracic Vascular Surgery) | DX: E11.52 Type 2 diabetes mellitus with diabetic peripheral angiopathy with gangrene (principal); E11.621 Type 2 diabetes mellitus with foot ulcer; L89.892 Pressure ulcer of other site, stage 2; Z09 Encounter for follow-up examination after completed treatment for conditions other than malignant neoplasm | CPT/HCPCS: 11044; 87070; 87176; 87205; A6446 ==

== ENCOUNTER → 2025-03-12 13:44 | Outpatient (BNVA) | payer MEDICARE, OTHER, SELFPAY | PROVIDERS: PCP Nurse Practitioner; Visit Provider Thoracic Surgery (Cardiothoracic Vascular Surgery) | DX: I96 Gangrene, not elsewhere classified (principal); L89.892 Pressure ulcer of other site, stage 2 | CPT/HCPCS: 97597 ==

== ENCOUNTER → 2025-03-26 10:24 | Outpatient (BNVA) | payer MEDICARE, OTHER, SELFPAY | PROVIDERS: PCP Nurse Practitioner; Visit Provider Thoracic Surgery (Cardiothoracic Vascular Surgery) | DX: E11.52 Type 2 diabetes mellitus with diabetic peripheral angiopathy with gangrene (principal); E11.621 Type 2 diabetes mellitus with foot ulcer; L89.892 Pressure ulcer of other site, stage 2 | CPT/HCPCS: 97597; A6219 ==

== ENCOUNTER → 2025-04-08 12:20 | Outpatient (BNVA) | payer MEDICARE, OTHER, SELFPAY | PROVIDERS: PCP Nurse Practitioner; Visit Provider Nurse Practitioner | DX: E55.9 Vitamin D deficiency, unspecified (principal); I10 Essential (primary) hypertension; E11.65 Type 2 diabetes mellitus with hyperglycemia; Z79.4 Long term (current) use of insulin; E03.8 Other specified hypothyroidism | CPT/HCPCS: 80053; 80061; 82306; 83036; 84439; 84443; 84481; 85025 ==